=== PATIENT | female | born 1960 | race Caucasian/White ===

== ENCOUNTER 2016-11-24 17:36 | Observation (INO) | payer OTHER ==
[~2016-11-24] VITALS: Ht 160 cm; Wt 100.0 kg
[~2016-11-24 17:36] MED LIST: AMLO2.5T PO; ATOR20TA15 PO; HYDR12.57 PO; LISI40TA PO; LORA-373 PO; METO50TA PO; TOPI1TAB31 PO; TRAZ50TA12 PO; XARE20TA PO; ZOLP10TA3 PO
[2016-11-24 17:37] VITALS: BP 156/89; PULSE 64; RESP 16; TEMP 98.3; O2SAT 98
--- NOTE | 2016-11-24 18:10 | PD ---
HPI Chief Complaint: Chest Pain Time Seen by Provider: 18:08 Travel History International Travel<30 days: No Contact w/Intl Traveler<30days: No Traveled to known affect area: No History of Present Illness HPI 55-year-old female presents for evaluation of chest pain. Symptoms started at 2 AM when she was at work at [email or web address] lifting boxes and other equipment. She describes it as a substernal chest pressure which has been constant. She does report that she went to sleep this morning after work and when she woke up the chest pressure has persisted throughout the day which prompted evaluation. It seems to be worse with exertion. She endorses some nausea as well as some paresthesias in her extremities. She reports that she has had a similar chest pressure about once a month for the past year but typically only lasts for about 30 minutes, it is abnormal have a last for several hours. She has no personal history of coronary artery disease. She does report that she has recently been seeing ground hand Dr. Monahan and it appears per chart review that she had a loop recorder placed in July 2016. A transesophageal echocardiogram was attempted in July 2016 as well but was aborted secondary to desaturation during the event. She has never had any sort of exercise stress test. She also reports a history of left leg DVT currently on Xarelto, the DVT was provoked by a long car ride to [place] 2 years ago, diabetes, high cholesterol, hypertension, remote history of breast cancer and cervical cancer, CVA. Her physician is Dr. Low. No other complaints. PFSH Past Medical History Hx Anticoagulant Therapy: Yes (XERALTO) Cardiovascular Problems: Yes Cerebrovascular Accident: Yes Diabetes: Yes Respiratory: Yes ?: Not Past Surgical History Hysterectomy: Yes Social History Alcohol Use: No Tobacco Use: No Allergies-Medications (Allergen,Severity, Reaction): Coded Allergies: Sulfa (Unverified Allergy, Unknown, 08/06/16) Reported Meds & Prescriptions Reported Meds & Active Scripts Active Reported Zolpidem (Zolpidem Tartrate) 10 Mg Tab 10 Mg PO HS PRN Xarelto (Rivaroxaban) 20 Mg Tab 20 Mg PO DAILY Trazodone (Trazodone HCl) 50 Mg Tab 50 Mg PO HS Topiramate 100 Mg Tab 100 Mg PO BID Metoprolol Tartrate 50 Mg Tab 50 Mg PO BID Lorazepam 0.5 Mg Tab 0.5 Mg PO DAILY PRN Lisinopril 40 Mg Tab 40 Mg PO DAILY Hydrochlorothiazide 12.5 Mg Cap 12.5 Mg PO DAILY Atorvastatin (Atorvastatin Calcium) 20 Mg Tab 20 Mg PO HS Amlodipine (Amlodipine Besylate) 2.5 Mg Tab 2.5 Mg PO DAILY Review of Systems Except as stated in HPI: all other systems reviewed are Neg Physical Exam Narrative GENERAL: Well-developed well-nourished female in no acute distress SKIN: Warm and dry. HEAD: Atraumatic. Normocephalic. EYES: Pupils equal and round. No scleral icterus. No injection or drainage. ENT: No nasal bleeding or discharge. Mucous membranes pink and moist. NECK: Trachea midline. No JVD. CARDIOVASCULAR: Regular rate and rhythm. No murmur appreciated. RESPIRATORY: No accessory muscle use. Clear to auscultation. Breath sounds equal bilaterally. GASTROINTESTINAL: Abdomen soft, non-tender, nondistended. Hepatic and splenic margins not palpable. MUSCULOSKELETAL: No obvious deformities. No pitting edema with negative Homans bilaterally. NEUROLOGICAL: Awake and alert. No obvious cranial nerve deficits. Motor grossly within normal limits. Normal speech. PSYCHIATRIC: Appropriate mood and affect; insight and judgment normal. Data Data Last Documented VS Vital Signs Date Time Temp Pulse Resp B/P Pulse Ox O2 Delivery O2 Flow Rate FiO2 11/24/16 17:37 98.3 64 16 156/89 98 Room Air Orders Electrocardiogram (11/24/16 18:11) Basic Metabolic Panel (Bmp) (11/24/16 18:11) Ckmb (Isoenzyme) Profile (11/24/16 18:11) Complete Blood Count With Diff (11/24/16 18:11) D-Dimer (11/24/16 18:11) Magnesium (Mg) (11/24/16 18:11) Prothrombin Time / Inr (Pt) (11/24/16 18:11) Act Partial Throm Time (Ptt) (11/24/16 18:11) Troponin I (11/24/16 18:11) Chest, Single Ap (11/24/16 18:11) Ecg Monitoring (11/24/16 18:11) Bilateral Bp Monitoring (11/24/16 18:11) Iv Access Insert/Monitor (11/24/16 18:11) Oximetry (11/24/16 18:11) Oxygen Administration (11/24/16 18:11) Sodium Chloride 0.9% Flush (Ns Flush) (11/24/16 18:15) Potassium Chloride (Kcl) (11/24/16 19:30) CKMB (11/24/16 18:37) CKMB% (11/24/16 18:37) Sodium Chlor 0.9% 1000 Ml Inj (Ns 1000 M (11/24/16 19:40) Admit Order (Ed Use Only) (11/24/16 19:48) Labs Laboratory Tests Test 11/24/16 18:37 White Blood Count 7.6 TH/MM3 Red Blood Count 3.92 MIL/MM3 Hemoglobin 12.3 GM/DL Hematocrit 37.0 % Mean Corpuscular Volume 94.5 FL Mean Corpuscular Hemoglobin 31.3 PG Mean Corpuscular Hemoglobin 33.2 % Concent Red Cell Distribution Width 14.1 % Platelet Count 217 TH/MM3 Mean Platelet Volume 9.0 FL Neutrophils (%) (Auto) 61.2 % Lymphocytes (%) (Auto) 24.5 % Monocytes (%) (Auto) 8.4 % Eosinophils (%) (Auto) 5.2 % Basophils (%) (Auto) 0.7 % Neutrophils # (Auto) 4.7 TH/MM3 Lymphocytes # (Auto) 1.9 TH/MM3 Monocytes # (Auto) 0.6 TH/MM3 Eosinophils # (Auto) 0.4 TH/MM3 Basophils # (Auto) 0.1 TH/MM3 CBC Comment DIFF FINAL Differential Comment Prothrombin Time 11.9 SEC Prothromb Time International 1.1 RATIO Ratio Activated Partial 22.6 SEC Thromboplast Time D-Dimer Quantitative (PE/DVT) LESS THAN 0.19 MG/L FEU Sodium Level 140 MEQ/L Potassium Level 3.3 MEQ/L Chloride Level 107 MEQ/L Carbon Dioxide Level 24.9 MEQ/L Anion Gap 8 MEQ/L Blood Urea Nitrogen 31 MG/DL Creatinine 1.05 MG/DL Estimat Glomerular Filtration 54 ML/MIN Rate Random Glucose 141 MG/DL Calcium Level 8.9 MG/DL Magnesium Level 2.3 MG/DL Total Creatine Kinase 182 U/L Creatine Kinase MB 2.9 NG/ML Troponin I LESS THAN 0.02 NG/ML MDM Medical Decision Making Medical Screen Exam Complete: Yes Emergency Medical Condition: Yes Medical Record Reviewed: Yes Interpretation(s) Twelve-lead EKG reveals sinus rhythm Differential Diagnosis Angina, unstable angina, acute coronary syndrome, anxiety, hypertensive urgency , costochondritis, pneumothorax, pericarditis, myocarditis, pulmonary embolism Narrative Course 55-year-old female with several hours of substernal chest pressure. She has a history of DVT in the left leg, and Xarelto, her symptoms and examination are not suggestive of a pulmonary embolism, we will send a d-dimer. Plan is for lab work, EKG, chest x-ray. The patient was placed on cardiac monitoring and pulse oximetry. The patient's lab work has been reviewed. Potassium is 3.3, she was given a dose of oral potassium. BUN to creatinine ratio was elevated so she was given 1 L of IV fluids. CK NB and troponin are negative. D-dimer is negative. At this point in time the plan is to admit the patient to the chest pain center for serial cardiac enzymes and rule out purposes. She is agreeable. Procedures EKG Prior to Arrival: Yes Diagnosis Primary Impression: Chest pain Qualified Code: R07.9 - Chest pain, unspecified type Admitting Information Admitting Physician Requests: Jhon Mendez Nov 24, 2016 18:10
[2016-11-24] MEDS ORDERED: SODIUM CHLORIDE 0.9% FLUSH 10 ML FLUSH IVF PRN (18:15)
--- NOTE | 2016-11-24 18:48 | RADRPT ---
EXAM DATE/TIME: 11/24/2016 18:28 [facility] COMPARISON: No previous studies available for comparison. INDICATIONS : Chest pain. MEDICAL HISTORY : None. SURGICAL HISTORY : None. ENCOUNTER: Initial ACUITY: 1 day PAIN SCORE: 5/10 LOCATION: chest FINDINGS: A single view of the chest demonstrates the lungs to be symmetrically aerated without evidence of mas s, infiltrate or effusion. The cardiomediastinal contours are unremarkable. Osseous structures are intact. CONCLUSION: No acute disease. Aristeo Rodriguez MD on November 24, 2016 at 18:47 Board Certified Radiologist. This report was verified electronically.
[2016-11-24 19:04] LABS: AUTOMATED NEUTROPHIL # 4.7 TH/MM3 (1.8-7.7); BASOPHIL # 0.1 TH/MM3 (0-0.2); BASOPHIL % 0.7 % (0.0-2.0); EOSINOPHIL # 0.4 TH/MM3 (0-0.4); EOSINOPHIL % 5.2 % (0.0-4.0); HEMO FLAGS DIFF FINAL; LYMPH % 24.5 % (9.0-44.0); LYMPHOCYTE # 1.9 TH/MM3 (1.0-4.8); MEAN CELL VOLUME 94.5 FL (80.0-100.0); MEAN CORPUSCULAR HEMOGLOBIN 31.3 PG (27.0-34.0); MEAN CORPUSCULAR HGB CONC 33.2 % (32.0-36.0); MONO % 8.4 % (0.0-8.0); NEUT % 61.2 % (16.0-70.0); PLATELET COUNT 217 TH/MM3 (150-450); RED BLOOD COUNT 3.92 MIL/MM3 (4.00-5.30); RED CELL DISTRIBUTION WIDTH 14.1 % (11.6-17.2); WHITE BLOOD COUNT 7.6 TH/MM3 (4.0-11.0)
[2016-11-24 19:23] LABS: ANION GAP 8 MEQ/L (5-15); BICARBONATE 24.9 MEQ/L (21.0-32.0); BLOOD UREA NITROGEN 31 MG/DL (7-18); CHLORIDE 107 MEQ/L (98-107); GLOMERULAR FILTRATION RATE 54 ML/MIN (>89); MAGNESIUM 2.3 MG/DL (1.5-2.5); POTASSIUM 3.3 MEQ/L (3.5-5.1); SODIUM (NA) 140 MEQ/L (136-145)
[2016-11-24 19:28] LABS: CREATINE KINASE 182 U/L (26-192)
[2016-11-24] MEDS ORDERED: POTASSIUM CHLORIDE 20 MEQ CONTROLLED RELEASE TAB PO ONE (19:30)
[2016-11-24 19:31] LABS: APTT (PATIENT) 22.6 SEC (24.3-30.1); INTERNATIONAL NORMALIZED RATIO 1.1 RATIO; PROTHROMBIN TIME - PATIENT 11.9 SEC (9.8-11.6)
[2016-11-24 19:40] LABS: CKMB 2.9 NG/ML (0.5-3.6)
[2016-11-24] MEDS ORDERED: SODIUM CHLOR 0.9% 1000 ML INJ 1,000 ML IV SCH (19:40)
[2016-11-24 19:51] VITALS: BP 118/74; PULSE 59; RESP 18; O2SAT 99
[2016-11-24] MEDS ORDERED: SODIUM CHLORIDE 0.9% FLUSH 10 ML FLUSH IV FLUSH PRN (20:00)
--- NOTE | 2016-11-24 20:12 | PD ---
Data Data Last Documented VS Vital Signs Date Time Temp Pulse Resp B/P Pulse Ox O2 Delivery O2 Flow Rate FiO2 11/24/16 17:37 98.3 64 16 156/89 98 Room Air Orders Electrocardiogram (11/24/16 18:11) Basic Metabolic Panel (Bmp) (11/24/16 18:11) Ckmb (Isoenzyme) Profile (11/24/16 18:11) Complete Blood Count With Diff (11/24/16 18:11) D-Dimer (11/24/16 18:11) Magnesium (Mg) (11/24/16 18:11) Prothrombin Time / Inr (Pt) (11/24/16 18:11) Act Partial Throm Time (Ptt) (11/24/16 18:11) Troponin I (11/24/16 18:11) Chest, Single Ap (11/24/16 18:11) Ecg Monitoring (11/24/16 18:11) Bilateral Bp Monitoring (11/24/16 18:11) Iv Access Insert/Monitor (11/24/16 18:11) Oximetry (11/24/16 18:11) Oxygen Administration (11/24/16 18:11) Sodium Chloride 0.9% Flush (Ns Flush) (11/24/16 18:15) Potassium Chloride (Kcl) (11/24/16 19:30) CKMB (11/24/16 18:37) CKMB% (11/24/16 18:37) Sodium Chlor 0.9% 1000 Ml Inj (Ns 1000 M (11/24/16 19:40) Admit Order (Ed Use Only) (11/24/16 19:48) Labs Laboratory Tests Test 11/24/16 18:37 White Blood Count 7.6 TH/MM3 Red Blood Count 3.92 MIL/MM3 Hemoglobin 12.3 GM/DL Hematocrit 37.0 % Mean Corpuscular Volume 94.5 FL Mean Corpuscular Hemoglobin 31.3 PG Mean Corpuscular Hemoglobin 33.2 % Concent Red Cell Distribution Width 14.1 % Platelet Count 217 TH/MM3 Mean Platelet Volume 9.0 FL Neutrophils (%) (Auto) 61.2 % Lymphocytes (%) (Auto) 24.5 % Monocytes (%) (Auto) 8.4 % Eosinophils (%) (Auto) 5.2 % Basophils (%) (Auto) 0.7 % Neutrophils # (Auto) 4.7 TH/MM3 Lymphocytes # (Auto) 1.9 TH/MM3 Monocytes # (Auto) 0.6 TH/MM3 Eosinophils # (Auto) 0.4 TH/MM3 Basophils # (Auto) 0.1 TH/MM3 CBC Comment DIFF FINAL Differential Comment Prothrombin Time 11.9 SEC Prothromb Time International 1.1 RATIO Ratio Activated Partial 22.6 SEC Thromboplast Time D-Dimer Quantitative (PE/DVT) LESS THAN 0.19 MG/L FEU Sodium Level 140 MEQ/L Potassium Level 3.3 MEQ/L Chloride Level 107 MEQ/L Carbon Dioxide Level 24.9 MEQ/L Anion Gap 8 MEQ/L Blood Urea Nitrogen 31 MG/DL Creatinine 1.05 MG/DL Estimat Glomerular Filtration 54 ML/MIN Rate Random Glucose 141 MG/DL Calcium Level 8.9 MG/DL Magnesium Level 2.3 MG/DL Total Creatine Kinase 182 U/L Creatine Kinase MB 2.9 NG/ML Troponin I LESS THAN 0.02 NG/ML MDM Supervised Visit with SHAHZAD: Yes Narrative Course The history, exam, and medical decision-making in the associated midlevel provider note were completed with my assistance. I reviewed and agree with the findings presented. I attest that I had a [id number] encounter with the patient on the same day, and personally performed and documented my assessment and findings in the medical record. *My assessment and Findings: This is a 55-year-old female who is followed by Dr. Monahan who presents to the emergency department with chest discomfort that she's had in the past that lasted for a long period of time today concerning her bring her to the emergency department. She has some T-wave inversions in the lateral leads on EKG with left ventricular hypertrophy. Troponin was normal. Patient will be placed in observation in the chest pain center for serial cardiac enzymes and cardiology consultation in the morning. It is not clear when her last stress test was. Patient does also have a history of DVT and is on Xarelto. D-dimer was negative and she is in a moderate risk category by Well's criteria don't think CT imaging is warranted. Diagnosis Primary Impression: Chest pain Qualified Code: R07.9 - Chest pain, unspecified type Carolina Potts MD Nov 24, 2016 20:12
[2016-11-24] MEDS: SODIUM CHLORIDE 0.9% FLUSH 10 ML FLUSH IV FLUSH SCH (20:51)
[2016-11-24 22:10] VITALS: BP 126/68; PULSE 68; RESP 18; TEMP 98.4; O2SAT 98
[2016-11-24 22:11] LABS: CREATINE KINASE 163 U/L (26-192)
[2016-11-24 22:19] VITALS: PULSE 67
[2016-11-24 22:20] VITALS: PULSE 67
[2016-11-25] VITALS: BP 128/74; PULSE 88; RESP 18; TEMP 98; O2SAT 98
[2016-11-25 01:11] LABS: CREATINE KINASE 119 U/L (26-192)
[2016-11-25 01:23] LABS: CKMB 2.1 NG/ML (0.5-3.6)
[2016-11-25 04:14] VITALS: BP 133/63; PULSE 53; RESP 18; TEMP 97.8; O2SAT 95
[2016-11-25 08:03] VITALS: BP 134/60; PULSE 55; RESP 18; TEMP 98.5; O2SAT 94
[2016-11-25] MEDS ORDERED: ACETAMINOPHEN 500 MG CPLT PO PRN (08:30)
[2016-11-25] MEDS ORDERED: NITROGLYCERIN 0.4 MG SL 25 TABS/BTL SL PRN (08:30)
[2016-11-25] MEDS ORDERED: ONDANSETRON HCL 4 MG/2 ML VIAL IV PRN (08:30)
[2016-11-25] MEDS: SODIUM CHLORIDE 0.9% FLUSH 10 ML FLUSH IV FLUSH SCH (09:00)
[2016-11-25] MEDS ORDERED: METOPROLOL TARTRATE 50 MG TAB PO SCH (09:00)
[2016-11-25] MEDS ORDERED: amLODIPine BESYLATE 5 MG TAB PO SCH (09:00)
[2016-11-25] MEDS ORDERED: HYDROCHLOROTHIAZIDE 12.5 MG CAP PO SCH (09:00)
--- NOTE | 2016-11-25 09:20 | HHI.DCPOC ---
Discharge Care Plan Diagnosis: (1) Atypical chest pain (2) Anxiety (3) Hypertension (4) Type 2 diabetes mellitus (5) Situational stress (6) Obesity Goals to Promote Your Health * To prevent worsening of your condition and complications * To maintain your health at the optimal level Directions to Meet Your Goals Take your medications as prescribed Follow your dietary instruction Follow activity as directed Keep your appointments as scheduled Take your immunizations and boosters as scheduled If your symptoms worsen call your PCP, if no PCP go to Urgent Care Center or Emergency Room Smoking is Dangerous to Your Health. Avoid second hand smoke Call the 24-hour hour crisis hotline for domestic abuse at Carli Devi Nov 25, 2016 09:20
[2016-11-25] MEDS ORDERED: TOPIRAMATE 100 MG TAB PO SCH (10:00)
[2016-11-25] MEDS ORDERED: RIVAROXABAN 20 MG TAB PO SCH (10:00)
[2016-11-25] MEDS ORDERED: LISINOPRIL 20 MG TAB PO SCH (10:00)
[2016-11-25 10:13] VITALS: PULSE 52
--- NOTE | 2016-11-25 10:39 | HHI.HP ---
HPI Primary Care Physician Cristobal Low DO Chief Complaint Chest pain History of Present Illness 55-year-old patient with known hypertension, diabetes, and hyperlipidemia presents to the emergency room for further evaluation. Onset Tuesday 2 AM, while at work during a break she developed substernal severe nonexertional chest pain. No radiation. Described as a stabbing pain. Duration constant, waxed and waned and varied in severity. Associated symptoms included nausea and "my whole body was tingling." Taking a deep breath made pain worse. Position or movement did not make pain better or worse. Precipitating factors she believes is stress however does not feel she is anxious. No known relieving factors. She continued to work until at 7 AM, went home completing shift and slept until 3 PM. Upon awakening chest discomfort remained described as "a hand sitting pressing on my chest ." Spoke with daughter regarding events and decided to come to emergency room for further evaluation. Endorses intermittent chest discomfort in the past however not as severe. Review of Systems General: No fatigue,weakness, fever, chills, recent illness, or change in appetite HEENT: No BRADLEY, no vision changes, no nasal congestion or drainage, no dysphasia CV: As stated above . No current chest pain or pressure. No palpitations, intermittent leg pain, or dizziness. Recorder placed July 2016. No recorded events that she is aware of. Loop recorder was placed due to dizziness and near syncopal episodes. RESP: No SOB, cough, wheeze, or recent URI. GI: No nausea, vomiting, bowel changes, diarrhea, constipation, pain, distention , melena, blood in the stool. No unintentional weight gain or weight loss : No dysuria, urgency, frequency, hematuria, or history of kidney stones EXT: No lower leg edema, no paraesthesias MS: No discomfort or change in ROM NEURO: No change in memory, difficulty with balance, LOC, motor/sensory deficits PSYCH: Depression stable on current medications. Ativan when necessary, states she uses regularly before going to sleep. Endorses situational stress recently with job and recent move. SKIN: No rashes, no concerning lesions Past Family Social History Allergies: Coded Allergies: Sulfa (Unverified Allergy, Unknown, 08/06/16) Past Medical History Hypertension, hyperlipidemia, breast cancer (never required chemotherapy or radiation), cervical cancer (never require chemotherapy or radiation), depression, left leg DVT (2 years ago), CVA (5 years ago), and diabetes. Does not take medication for diabetes was diagnosed 2 years ago currently managed with diet. Past Surgical History Cholecystectomy Reported Medications Reported Meds & Active Scripts Active Reported Zolpidem (Zolpidem Tartrate) 10 Mg Tab 10 Mg PO HS PRN Xarelto (Rivaroxaban) 20 Mg Tab 20 Mg PO DAILY Trazodone (Trazodone HCl) 50 Mg Tab 50 Mg PO HS Topiramate 100 Mg Tab 100 Mg PO BID Metoprolol Tartrate 50 Mg Tab 50 Mg PO BID Lorazepam 0.5 Mg Tab 0.5 Mg PO DAILY PRN Lisinopril 40 Mg Tab 40 Mg PO DAILY Hydrochlorothiazide 12.5 Mg Cap 12.5 Mg PO DAILY Atorvastatin (Atorvastatin Calcium) 20 Mg Tab 20 Mg PO HS Amlodipine (Amlodipine Besylate) 2.5 Mg Tab 2.5 Mg PO DAILY Active Ordered Medications Current Medications Medications (Trade) Dose Ordered Sig/Reina Route Start Time Stop Time Status Last Admin (Tylenol) 500 mg Q4H PRN PO 11/25/16 08:30 (Zofran Inj) 4 mg Q6H PRN IV 11/25/16 08:30 (Nitrostat Sl) 0.4 mg Q5M PRN SL 11/25/16 08:30 (Norvasc) 2.5 mg DAILY PO 11/25/16 09:00 11/25/16 09:30 (Lipitor) 20 mg HS PO 11/25/16 21:00 (Microzide) 12.5 mg DAILY PO 11/25/16 09:00 11/25/16 09:30 (Lopressor) 50 mg BID PO 11/25/16 09:00 11/25/16 09:30 (Xarelto) 20 mg DAILY PO 11/25/16 10:00 (Topamax) 100 mg BID PO 11/25/16 10:00 (Desyrel) 50 mg HS PO 11/25/16 21:00 (Prinivil) 40 mg DAILY PO 11/25/16 10:00 Social History 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 Denies any alcohol or illegal drug use. Past cardiac testing Patient's senior automation engineer is Dr. Monahan. Loop recorder placed July 2016. Per her report no recent stress testing. Never had cardiac catheterization. Physical Exam Vital Signs Vital Signs Date Time Temp Pulse Resp B/P Pulse Ox O2 Delivery O2 Flow Rate FiO2 11/25/16 10:13 52 11/25/16 08:03 98.5 55 18 134/60 94 11/25/16 04:14 97.8 53 18 133/63 95 11/25/16 00:00 98.0 88 18 128/74 98 11/24/16 22:20 67 11/24/16 22:19 67 11/24/16 22:10 98.4 68 18 126/68 98 11/24/16 19:51 99 Room Air 11/24/16 19:51 59 18 118/74 99 Room Air 11/24/16 19:51 118/74 11/24/16 17:37 98.3 64 16 156/89 98 Room Air Physical Exam GENERAL: Alert WN, WD, NAD, pleasant, , obese female HEAD: NC, AT EYES: Sclera clear, conjunctiva without injection, pupils equal and round ENT: Mucous membranes pink and moist NECK: Supple, no masses, trachea midline CV: RRR, 2/6 systolic murmur, no rub, gallop, JVD, S1-S2 no S3-S4. RESP: Clear lungs throughout bilateral, no crackles, wheeze, rhonchi, symmetrical chest rise, nonlabored, able to speak in full sentences ABD: Soft, NT, ND, obese, no masses, positive bowel tones BACK: No CVAT, no scoliosis EXT: Pulses +24, no dependent edema MS: Normal tone 4 extremities, nontender, no obvious deformities, full range of motion NEURO: CN II through CN XII grossly intact, motor strength 5/5, gait WNL PSYCH: A+O 3, pleasant affect, appropriate speech, appropriate mood and affect , insight and judgment SKIN: Normal turgor, normal texture, no lesions, no rashes, brisk cap refill, even hair distribution Laboratory Laboratory Tests Test 11/24/16 11/24/16 11/25/16 18:37 21:20 00:00 White Blood Count 7.6 Red Blood Count 3.92 Hemoglobin 12.3 Hematocrit 37.0 Mean Corpuscular Volume 94.5 Mean Corpuscular Hemoglobin 31.3 Mean Corpuscular Hemoglobin 33.2 Concent Red Cell Distribution Width 14.1 Platelet Count 217 Mean Platelet Volume 9.0 Neutrophils (%) (Auto) 61.2 Lymphocytes (%) (Auto) 24.5 Monocytes (%) (Auto) 8.4 Eosinophils (%) (Auto) 5.2 Basophils (%) (Auto) 0.7 Neutrophils # (Auto) 4.7 Lymphocytes # (Auto) 1.9 Monocytes # (Auto) 0.6 Eosinophils # (Auto) 0.4 Basophils # (Auto) 0.1 CBC Comment DIFF FINAL Differential Comment Prothrombin Time 11.9 Prothromb Time International 1.1 Ratio Activated Partial 22.6 Thromboplast Time D-Dimer Quantitative (PE/DVT) LESS THAN 0.19 Sodium Level 140 Potassium Level 3.3 Chloride Level 107 Carbon Dioxide Level 24.9 Anion Gap 8 Blood Urea Nitrogen 31 Creatinine 1.05 Estimat Glomerular Filtration 54 Rate Random Glucose 141 Calcium Level 8.9 Magnesium Level 2.3 Total Creatine Kinase 182 163 119 Creatine Kinase MB 2.9 2.0 2.1 Troponin I LESS THAN 0.02 LESS THAN 0.02 0.02 Result Diagram: 11/24/16183611/24/161836 Imaging Last Impressions Chest X-Ray 11/24/161810 Signed Impressions: Service Date/Time: Thursday, November 24, 2016 18:28 - CONCLUSION: No acute disease. Aristeo Rodriguez MD Course EKGs 3 EKG show normal sinus rhythm with nonspecific ST changes Assessment and Plan Assessment and Plan #1 Chest painadmitted to chest pain center. Ruled out with 3 EKGs, cardiac enzymes, and monitored overnight. The patient seen and evaluated by Dr. Annamaria Gauthier. Spoke with patient's senior automation engineer, Dr. Monahan, regarding plan of care. Dr. Monahan states patient recently had normal stress test July 2016, no further stress testing required at this time. Skylar requests for patient to follow-up in office and to keep appointment in November. Discussed with patient in length and she is agreeable to plan of care. #2 Hypertensioncontinue lisinopril, hydrochlorothiazide, amlodipine #3 Anxietycontinue Ativan when necessary. Discussed in length importance of well-balanced diet, daily activity, and he open communication with her PCP regarding her anxiety and depression. #4 Diabetesencouraged following diabetic diet, daily activity, and keeping follow-up appointments with PCP #5 History of DVT- continue Xarelto #6 Hypokalemia-replacement provided in ED Carli Devi Nov 25, 2016 10:39
[2016-11-25] MEDS ORDERED: traZODone HCL 50 MG TAB PO SCH (21:00)
[2016-11-25] MEDS ORDERED: ATORVASTATIN 20 MG TAB PO SCH (21:00)
--- NOTE | 2016-11-25 21:37 | EKG ---
Date Performed: 11/25/2016 Time Performed: 01:44:10 PTAGE: 55 years EKG: SINUS BRADYCARDIA NONSPECIFIC T-WAVE ABNORMALITY ABNORMAL ECG Since PREVIOUS TRACING , no significant change noted PREVIOUS TRACIN11/24/2016 22.14 DOCTOR: Annamaria Gauthier Interpretating Date/Time 11/25/2016 21:35:53
--- NOTE | 2016-11-25 21:38 | EKG ---
Date Performed: 11/24/2016 Time Performed: 22:14:43 PTAGE: 55 years EKG: SINUS BRADYCARDIA LEFT VENTRICULAR HYPERTROPHY AND ST-T CHANGE ABNORMAL ECG Since PREVIOUS TRACING , no significant change noted PREVIOUS TRACIN11/24/2016 18.08 DOCTOR: Annamaria Gauthier Interpretating Date/Time 11/25/2016 21:37:09
--- NOTE | 2016-11-25 21:39 | EKG ---
Date Performed: 11/24/2016 Time Performed: 18:08:00 PTAGE: 55 years EKG: Sinus rhythm LEFT VENTRICULAR HYPERTROPHY AND ST-T CHANGE ABNORMAL ECG Since previous tracing, no significant norbert nge noted NO PREVIOUS TRACING DOCTOR: Annamaria Gauthier Interpretating Date/Time 11/25/2016 21:38:47
== END 2016-11-25 16:03 | disposition home or self-care (01) ==
LOC: NEPA 17:36 → NEDA 19:49 → NEPGCP 21:17
PROVIDERS: ADMIT Internal Medicine Cardiovascular Disease; ATTEND Internal Medicine Cardiovascular Disease
DX: R07.9 Chest pain, unspecified (principal); R11.0 Nausea; R20.9 Unspecified disturbances of skin sensation; Z86.718 Personal history of other venous thrombosis and embolism; Z85.41 Personal history of malignant neoplasm of cervix uteri; Z85.3 Personal history of malignant neoplasm of breast; I51.7 Cardiomegaly; E78.00 Pure hypercholesterolemia, unspecified; E11.9 Type 2 diabetes mellitus without complications; Z79.01 Long term (current) use of anticoagulants; Z79.899 Other long term (current) drug therapy; E78.5 Hyperlipidemia, unspecified; E87.6 Hypokalemia; I10 Essential (primary) hypertension; R94.31 Abnormal electrocardiogram [ECG] [EKG]; R00.1 Bradycardia, unspecified; F41.9 Anxiety disorder, unspecified
CPT/HCPCS: 71010; 80048; 82550; 82552; 83735; 84484; 85025; 85379; 85610; 85730; 93005; 99285; G0378; J7030

== ENCOUNTER 2017-04-28 16:33 | Observation (INO) | payer OTHER ==
[~2017-04-28] VITALS: Ht 160 cm; Wt 93.0 kg
[2017-04-28] VITALS (8 sets, daily range): BP systolic 138–202; BP diastolic 63–94; PULSE 54–71; RESP 12–20; TEMP 97.8–97.9; O2SAT 98–99
--- NOTE | 2017-04-28 16:38 | PD ---
Physical Exam Time Seen by Provider: 16:36 Narrative 56yo F c/o chest pain last night and chest pressure today. Has had pain like this bed. +lightheadedness and SOB. Reports hx of leak in aortic valve. HX of DVT and currently taking Xarelto. Patient seen in triage. VS reviewed. Awaiting bed placement. Data Data Last Documented VS Vital Signs Date Time Temp Pulse Resp B/P (MAP) Pulse Ox O2 Delivery O2 Flow Rate FiO2 04/28/17 16:35 97.9 66 20 189/94 (125) 99 Room Air Orders Orders Electrocardiogram (04/28/17 16:38) Basic Metabolic Panel (Bmp) (04/28/17 16:38) Ckmb (Isoenzyme) Profile (04/28/17 16:38) Complete Blood Count With Diff (04/28/17 16:38) Magnesium (Mg) (04/28/17 16:38) Prothrombin Time / Inr (Pt) (04/28/17 16:38) Act Partial Throm Time (Ptt) (04/28/17 16:38) Troponin I (04/28/17 16:38) Chest, Single Ap (04/28/17 16:38) Ecg Monitoring (04/28/17 16:38) Iv Access Insert/Monitor (04/28/17 16:38) Oximetry (04/28/17 16:38) Oxygen Administration (04/28/17 16:38) Sodium Chloride 0.9% Flush (Ns Flush) (04/28/17 16:45) [facility] Supervised Visit with SHAHZAD: Morenita Rosado Apr 28, 2017 16:38
[2017-04-28] MEDS ORDERED: SODIUM CHLORIDE 0.9% FLUSH 10 ML FLUSH IVF PRN (16:45)
[2017-04-28] MEDS ORDERED: TOPI1TAB36 PO (17:13)
--- NOTE | 2017-04-28 17:14 | PD ---
HPI Chief Complaint: Chest Pain Time Seen by Provider: 16:52 Travel History International Travel<30 days: No Contact w/Intl Traveler<30days: No Traveled to known affect area: No History of Present Illness HPI Patient is a 56-year-old female with history of diabetes, hypertension, DVT, "leaky aortic valve," presents to the ER with complaints of chest pain. Patient reports that she was working last night when she began to have this chest pain. Patient reports that chest pain is substernal in nature, reports that initially felt like a "sharp and stabbing sensation" that radiated up her neck, reports that now pain feels "pressure" to her chest. Patient reports that she has been having shortness of breath with diaphoresis with her symptoms. Reports the chest pain has been constant, nothing makes her pain better or worse. patient reports that she is on Xarelto for dvt, she follows with Dr. Monahan with cardiology. Reports that she last had an echo and stress test recently, reports that she thinks that everything was normal. PFSH Past Medical History Hx Anticoagulant Therapy: Yes (XERALTO) Cardiovascular Problems: Yes High Cholesterol: Yes Cerebrovascular Accident: Yes Diabetes: Yes Patient Takes Glucophage: No Hypertension: Yes Respiratory: Yes Immunizations Current: Yes Past Surgical History Cholecystectomy: Yes Gynecologic Surgery: Yes Hysterectomy: Yes (1996) Social History Alcohol Use: No Tobacco Use: No Substance Use: No Allergies-Medications (Allergen,Severity, Reaction): Coded Allergies: Sulfa (Sulfonamide Antibiotics) (Unverified Allergy, Unknown, 04/28/17) Reported Meds & Prescriptions Reported Meds & Active Scripts Active Reported Topiramate 50 Mg Tab 100 Mg PO BID Zolpidem (Zolpidem Tartrate) 10 Mg Tab 10 Mg PO HS PRN Xarelto (Rivaroxaban) 20 Mg Tab 20 Mg PO DAILY Trazodone (Trazodone HCl) 50 Mg Tab 50 Mg PO HS Metoprolol Tartrate 50 Mg Tab 50 Mg PO BID Lorazepam 0.5 Mg Tab 0.5 Mg PO DAILY PRN Lisinopril 40 Mg Tab 40 Mg PO DAILY Hydrochlorothiazide 12.5 Mg Cap 12.5 Mg PO DAILY Atorvastatin (Atorvastatin Calcium) 20 Mg Tab 20 Mg PO HS Amlodipine (Amlodipine Besylate) 2.5 Mg Tab 2.5 Mg PO DAILY Review of Systems General / Constitutional: No: Fever Eyes: No: Visual changes HENT: No: Headaches Cardiovascular: Positive: Chest Pain or Discomfort, Diaphoresis Respiratory: Positive: Shortness of Breath Gastrointestinal: No: Abdominal Pain Genitourinary: No: Dysuria Musculoskeletal: No: Pain Skin: No Rash Neurologic: No: Weakness Psychiatric: No: Depression Endocrine: No: Polydipsia Hematologic/Lymphatic: No: Easy Bruising Physical Exam Narrative GENERAL: Mild distress SKIN: Focused skin assessment warm/dry. HEAD: Atraumatic. Normocephalic. EYES: Pupils equal and round. No scleral icterus. No injection or drainage. ENT: No nasal bleeding or discharge. Mucous membranes pink and moist. NECK: Trachea midline. No JVD. CARDIOVASCULAR: Regular rate and rhythm. No murmur appreciated. RESPIRATORY: No accessory muscle use. Clear to auscultation. Breath sounds equal bilaterally. GASTROINTESTINAL: Abdomen soft, non-tender, nondistended. Hepatic and splenic margins not palpable. MUSCULOSKELETAL: No obvious deformities. No clubbing. No cyanosis. No edema. NEUROLOGICAL: Awake and alert. No obvious cranial nerve deficits. Motor grossly within normal limits. Normal speech. PSYCHIATRIC: Appropriate mood and affect; insight and judgment normal. Data Data Last Documented VS Vital Signs Date Time Temp Pulse Resp B/P (MAP) Pulse Ox O2 Delivery O2 Flow Rate FiO2 04/28/17 18:02 14 04/28/17 18:00 68 150/78 (102) 98 Room Air 04/28/17 16:35 97.9 Orders Orders Electrocardiogram (04/28/17 16:38) Basic Metabolic Panel (Bmp) (04/28/17 16:38) Ckmb (Isoenzyme) Profile (04/28/17 16:38) Complete Blood Count With Diff (04/28/17 16:38) Magnesium (Mg) (04/28/17 16:38) Prothrombin Time / Inr (Pt) (04/28/17 16:38) Act Partial Throm Time (Ptt) (04/28/17 16:38) Troponin I (04/28/17 16:38) Ecg Monitoring (04/28/17 16:38) Iv Access Insert/Monitor (04/28/17 16:38) Oximetry (04/28/17 16:38) Oxygen Administration (04/28/17 16:38) Sodium Chloride 0.9% Flush (Ns Flush) (04/28/17 16:45) Chest, Single Ap (04/28/17 16:38) Aspirin Chew (Aspirin Chew) (04/28/17 17:15) Nitroglycerin Sl (Nitrostat Sl) (04/28/17 17:15) CKMB (04/28/17 17:05) CKMB% (04/28/17 17:05) Potassium Chloride (Kcl) (04/28/17 18:30) Admit Order (Ed Use Only) (04/28/17 18:25) Activity Bed Rest With Brp (04/28/17 18:26) Vital Signs (Adult) Q4H (04/28/17 18:26) Labs Laboratory Tests Test 04/28/17 17:05 White Blood Count 6.8 TH/MM3 Red Blood Count 3.96 MIL/MM3 Hemoglobin 12.3 GM/DL Hematocrit 37.2 % Mean Corpuscular Volume 93.8 FL Mean Corpuscular Hemoglobin 31.1 PG Mean Corpuscular Hemoglobin Concent 33.1 % Red Cell Distribution Width 15.0 % Platelet Count 239 TH/MM3 Mean Platelet Volume 8.1 FL Neutrophils (%) (Auto) 57.3 % Lymphocytes (%) (Auto) 27.9 % Monocytes (%) (Auto) 9.6 % Eosinophils (%) (Auto) 4.6 % Basophils (%) (Auto) 0.6 % Neutrophils # (Auto) 3.9 TH/MM3 Lymphocytes # (Auto) 1.9 TH/MM3 Monocytes # (Auto) 0.7 TH/MM3 Eosinophils # (Auto) 0.3 TH/MM3 Basophils # (Auto) 0.0 TH/MM3 CBC Comment DIFF FINAL Differential Comment Prothrombin Time 10.2 SEC Prothromb Time International Ratio 0.9 RATIO Activated Partial Thromboplast Time 25.4 SEC Blood Urea Nitrogen 30 MG/DL Creatinine 1.06 MG/DL Random Glucose 122 MG/DL Calcium Level 9.3 MG/DL Magnesium Level 2.4 MG/DL Sodium Level 139 MEQ/L Potassium Level 3.4 MEQ/L Chloride Level 104 MEQ/L Carbon Dioxide Level 26.4 MEQ/L Anion Gap 9 MEQ/L Estimat Glomerular Filtration Rate 53 ML/MIN Total Creatine Kinase 119 U/L Creatine Kinase MB 2.3 NG/ML Troponin I 0.02 NG/ML MDM Medical Decision Making Medical Screen Exam Complete: Yes Emergency Medical Condition: Yes Interpretation(s) EKG at 1644: Sinus bradycardia at 58bpm, nonspecific st seg changes (EKG similar to 11/25/16) Vital Signs Date Time Temp Pulse Resp B/P (MAP) Pulse Ox O2 Delivery O2 Flow Rate FiO2 04/28/17 16:58 62 99 Room Air 04/28/17 16:56 Room Air 04/28/17 16:56 63 12 202/74 (116) 99 Room Air 04/28/17 16:35 97.9 66 20 189/94 (125) 99 Room Air Differential Diagnosis Differential includes ACS, arrhythmia, anxiety reaction, costochondritis, electrolyte abnormality Narrative Course Patient is a 56-year-old female who presents to emergency with complaints of chest pain. Patient reports that chest pain has been ongoing since last night, reports that chest pain was initially sharp and stabbing in nature now feels like a pressure to her chest. Patient was placed on a direct casting operator upon arrival to the emergency room. EKG was obtained, EKG with nonspecific ST-T wave changes, unchanged from previous EKGs. Aspirin ordered, sublingual nitroglycerin ordered, x-ray of the chest, lab work including cardiac enzymes ordered as well. Vital Signs Date Time Temp Pulse Resp B/P (MAP) Pulse Ox O2 Delivery O2 Flow Rate FiO2 04/28/17 18:02 14 04/28/17 18:00 68 16 150/78 (102) 98 Room Air 04/28/17 17:59 71 16 138/73 (94) 99 Room Air 04/28/17 17:08 59 19 181/77 (111) 98 Room Air 04/28/17 16:58 62 99 Room Air 04/28/17 16:56 Room Air 04/28/17 16:56 63 12 202/74 (116) 99 Room Air 04/28/17 16:35 97.9 66 20 189/94 (125) 99 Room Air Laboratory Tests Test 04/28/17 17:05 White Blood Count 6.8 TH/MM3 (4.0-11.0) Red Blood Count 3.96 MIL/MM3 (4.00-5.30) Hemoglobin 12.3 GM/DL (11.6-15.3) Hematocrit 37.2 % (35.0-46.0) Mean Corpuscular Volume 93.8 FL (80.0-100.0) Mean Corpuscular Hemoglobin 31.1 PG (27.0-34.0) Mean Corpuscular Hemoglobin Concent 33.1 % (32.0-36.0) Red Cell Distribution Width 15.0 % (11.6-17.2) Platelet Count 239 TH/MM3 (150-450) Mean Platelet Volume 8.1 FL (7.0-11.0) Neutrophils (%) (Auto) 57.3 % (16.0-70.0) Lymphocytes (%) (Auto) 27.9 % (9.0-44.0) Monocytes (%) (Auto) 9.6 % (0.0-8.0) Eosinophils (%) (Auto) 4.6 % (0.0-4.0) Basophils (%) (Auto) 0.6 % (0.0-2.0) Neutrophils # (Auto) 3.9 TH/MM3 (1.8-7.7) Lymphocytes # (Auto) 1.9 TH/MM3 (1.0-4.8) Monocytes # (Auto) 0.7 TH/MM3 (0-0.9) Eosinophils # (Auto) 0.3 TH/MM3 (0-0.4) Basophils # (Auto) 0.0 TH/MM3 (0-0.2) CBC Comment DIFF FINAL Differential Comment Prothrombin Time 10.2 SEC (9.8-11.6) Prothromb Time International Ratio 0.9 RATIO Activated Partial Thromboplast Time 25.4 SEC (24.3-30.1) Blood Urea Nitrogen 30 MG/DL (7-18) Creatinine 1.06 MG/DL (0.50-1.00) Random Glucose 122 MG/DL (74-106) Calcium Level 9.3 MG/DL (8.5-10.1) Magnesium Level 2.4 MG/DL (1.5-2.5) Sodium Level 139 MEQ/L (136-145) Potassium Level 3.4 MEQ/L (3.5-5.1) Chloride Level 104 MEQ/L (98-107) Carbon Dioxide Level 26.4 MEQ/L (21.0-32.0) Anion Gap 9 MEQ/L (5-15) Estimat Glomerular Filtration Rate 53 ML/MIN (>89) Total Creatine Kinase 119 U/L (26-192) Creatine Kinase MB 2.3 NG/ML (0.5-3.6) Troponin I 0.02 NG/ML (0.02-0.05) Last Impressions Chest X-Ray 04/28/17 1638 Signed Impressions: Service Date/Time: , April 28, 2017 17:05 - CONCLUSION: No acute disease. Nicola Martinez MD Patient re-evaluated, she is chest pain free after 1 SL nitro. Plan to obs in chest pain unit. Patient agreeable to admission Diagnosis Primary Impression: Chest pain Qualified Codes: R07.9 - Chest pain, unspecified Admitting Information Admitting Physician Requests: Observation Lorena Tavera DO Apr 28, 2017 17:14
[2017-04-28] MEDS ORDERED: ASPIRIN 81 MG CHEW TAB PO ONE (17:15)
[2017-04-28 17:40] LABS: AUTOMATED NEUTROPHIL # 3.9 TH/MM3 (1.8-7.7); BASOPHIL % 0.6 % (0.0-2.0); EOSINOPHIL # 0.3 TH/MM3 (0-0.4); EOSINOPHIL % 4.6 % (0.0-4.0); HEMATOCRIT 37.2 % (35.0-46.0); HEMO FLAGS DIFF FINAL; LYMPH % 27.9 % (9.0-44.0); LYMPHOCYTE # 1.9 TH/MM3 (1.0-4.8); MEAN CELL VOLUME 93.8 FL (80.0-100.0); MEAN CORPUSCULAR HEMOGLOBIN 31.1 PG (27.0-34.0); MEAN CORPUSCULAR HGB CONC 33.1 % (32.0-36.0); MONO % 9.6 % (0.0-8.0); NEUT % 57.3 % (16.0-70.0); PLATELET COUNT 239 TH/MM3 (150-450); RED BLOOD COUNT 3.96 MIL/MM3 (4.00-5.30); WHITE BLOOD COUNT 6.8 TH/MM3 (4.0-11.0)
--- NOTE | 2017-04-28 17:43 | RADRPT ---
EXAM DATE/TIME: 04/28/2017 17:05 [facility] COMPARISON: CHEST SINGLE AP, November 24, 2016, 18:28. INDICATIONS : Chest pain and short of breath since yesterday. MEDICAL HISTORY : None. SURGICAL HISTORY : None. ENCOUNTER: Initial ACUITY: 1 day PAIN SCORE: 7/10 LOCATION: Bilateral chest FINDINGS: A single view of the chest demonstrates the lungs to be symmetrically aerated without evidence of mas s, infiltrate or effusion. The cardiomediastinal contours are unremarkable. Osseous structures are intact. There are multiple overlying electrocardiogram leads. CONCLUSION: No acute disease. Nicola Martinez MD on April 28, 2017 at 17:41 Board Certified Radiologist. This report was verified electronically.
[2017-04-28 17:52] LABS: APTT (PATIENT) 25.4 SEC (24.3-30.1); INTERNATIONAL NORMALIZED RATIO 0.9 RATIO; PROTHROMBIN TIME - PATIENT 10.2 SEC (9.8-11.6)
[2017-04-28] MEDS: NITROGLYCERIN 0.4 MG SL 25 TABS/BTL SL SCH ×3 (17:52→18:02)
[2017-04-28 17:58] LABS: ANION GAP 9 MEQ/L (5-15); BICARBONATE 26.4 MEQ/L (21.0-32.0); BLOOD UREA NITROGEN 30 MG/DL (7-18); CHLORIDE 104 MEQ/L (98-107); GLOMERULAR FILTRATION RATE 53 ML/MIN (>89); MAGNESIUM 2.4 MG/DL (1.5-2.5); POTASSIUM 3.4 MEQ/L (3.5-5.1); SODIUM (NA) 139 MEQ/L (136-145)
[2017-04-28 18:01] LABS: CREATINE KINASE 119 U/L (26-192)
[2017-04-28 18:20] LABS: CKMB 2.3 NG/ML (0.5-3.6)
[2017-04-28] MEDS ORDERED: POTASSIUM CHLORIDE 10 MEQ CONTROLLED RELEASE TAB PO ONE (18:30)
[2017-04-28 21:18] LABS: CREATINE KINASE 110 U/L (26-192)
[2017-04-28 21:31] LABS: CKMB 2.2 NG/ML (0.5-3.6)
[2017-04-29] VITALS (7 sets, daily range): BP systolic 119–140; BP diastolic 58–80; PULSE 48–63; RESP 16–18; TEMP 97.7–98.2; O2SAT 97–99
--- NOTE | 2017-04-29 08:44 | HHI.HP ---
HPI Primary Care Physician Cristobal Low DO Chief Complaint Chest pain History of Present Illness 56-year-old female with history of diabetes, hypertension, and DVT presents to emergency room for further evaluation of chest pain. Onset last evening while at work midnight. Location substernal. Characterized as a stabbing from the front to the back. No associated symptoms of shortness of breath, nausea, vomiting, or diaphoresis. Endorses hurt to take a deep breath. Approximately 2 hours later she developed left neck pain and left arm tingling. At 4 AM stabbing pain changed to chest pressure accompanied with dizziness. Completed her shift relieving at 7 AM. Unable to sleep due to chest pressure. No precipitating or relieving factors. Came to ER in afternoon for further evaluation of chest pressure. Endorses similar pain in the past. Patients resaw machine operator is Dr. Monahan. Review of Systems General: No fatigue,weakness, fever, chills, or recent illness. Has been in her general state of health. HEENT: No BRADLEY, no nasal congestion or drainage CV: As stated above. Currently chest pain free. RESP: Intermittent chest congestion every week or so. Chest congestion usually lingers for 3-4 days. No SOB, no dyspnea, cough, wheeze, sputum production, or history of asthma GI: No nausea, vomiting, bowel changes, diarrhea, melena, or blood in the stool. No change in appetite, no unintentional weight gain or weight loss : No dysuria, urgency or frequency EXT: Intermittent lower leg edema, noting left leg slightly more edematous due to current DVT, states she will be on lifetime anticoagulants. MS: No discomfort or change in ROM NEURO: No difficulty with balance, LOC, motor/sensory deficits PSYCH: No anxiety, depression, or situation stress SKIN: No rashes, no concerning lesions Past Family Social History Allergies: Coded Allergies: Sulfa (Sulfonamide Antibiotics) (Unverified Allergy, Unknown, 04/28/17) Past Medical History Diabetes (diet controlled at this time), HTN, Left leg DVT, hyperlipidemia, breast cancer (never required chemotherapy or radiation), cervical cancer ( never required chemotherapy or radiation), depression, CVA (5 years ago) Past Surgical History Hysterectomy, cholecystectomy, lumpectomy, cervical mass removed Reported Medications Active Reported Topiramate 50 Mg Tab 100 Mg PO BID Zolpidem (Zolpidem Tartrate) 10 Mg Tab 10 Mg PO HS PRN Xarelto (Rivaroxaban) 20 Mg Tab 20 Mg PO DAILY Trazodone (Trazodone HCl) 50 Mg Tab 50 Mg PO HS Metoprolol Tartrate 50 Mg Tab 50 Mg PO BID Lorazepam 0.5 Mg Tab 0.5 Mg PO DAILY PRN Lisinopril 40 Mg Tab 40 Mg PO DAILY Hydrochlorothiazide 12.5 Mg Cap 12.5 Mg PO DAILY Atorvastatin (Atorvastatin Calcium) 20 Mg Tab 20 Mg PO HS Amlodipine (Amlodipine Besylate) 2.5 Mg Tab 2.5 Mg PO DAILY Active Ordered Medications Current Medications Medications (Trade) Dose Ordered Sig/Reina Route Start Time Stop Time Status Last Admin (NS Flush) 2 ml UNSCH PRN IVF 04/28/17 16:45 04/29/17 08:24 (Aspirin) 325 mg DAILY PO 04/29/17 09:00 04/29/17 08:23 Social History Known diabetes, hyperlipidemia and hypertension. No known CAD. Lifelong nonsmoker. Denies any alcohol or illegal drug use. 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 Past Cardiac Testing July [id number] (completed at [facility]) Patient follows with Dr. Monahan-last appointment with him last month. No changes in medications or recent stressing at that time. Physical Exam Vital Signs Vital Signs Date Time Temp Pulse Resp B/P (MAP) Pulse Ox O2 Delivery O2 Flow Rate FiO2 04/29/17 07:54 98.2 56 16 127/65 (85) 98 04/29/17 07:30 63 04/29/17 04:39 97.9 55 17 140/80 (100) 99 04/29/17 04:03 56 04/29/17 00:07 51 04/28/17 23:36 97.8 54 18 142/63 (89) 98 04/28/17 20:19 61 04/28/17 19:58 97.8 59 16 143/70 (94) 99 04/28/17 19:26 04/28/17 18:02 14 04/28/17 18:00 68 16 150/78 (102) 98 Room Air 04/28/17 17:59 71 16 138/73 (94) 99 Room Air 04/28/17 17:08 59 19 181/77 (111) 98 Room Air 04/28/17 16:58 62 99 Room Air 04/28/17 16:56 Room Air 04/28/17 16:56 63 12 202/74 (116) 99 Room Air 04/28/17 16:35 97.9 66 20 189/94 (125) 99 Room Air Physical Exam GENERAL: Alert WN, WD, NAD, pleasant, obese, female HEAD: NC, AT EYES: Sclera clear, conjunctiva without injection CV: RRR, 2/6 systolic murmur, no rub, no gallop, no JVD, S1-S2 no S3-S4. RESP: Clear lungs throughout bilateral, no crackles, wheeze, rhonchi, symmetrical chest rise, nonlabored, able to speak in full sentences ABD: Soft, NT, ND, no masses, positive bowel tones BACK: No CVAT EXT: Pulses +24, no dependent edema MS: Normal tone 4 extremities, nontender, no obvious deformities, full range of motion NEURO: CN II through CN XII grossly intact, motor strength 5/5, gait WNL PSYCH: A+O 3, pleasant affect, appropriate speech, appropriate mood and affect , insight and judgment SKIN: Normal turgor, normal texture, no lesions, no rashes, brisk cap refill, even hair distribution Laboratory Laboratory Tests Test 04/28/17 17:05 04/28/17 20:00 04/28/17 22:50 White Blood Count 6.8 Red Blood Count 3.96 Hemoglobin 12.3 Hematocrit 37.2 Mean Corpuscular Volume 93.8 Mean Corpuscular Hemoglobin 31.1 Mean Corpuscular Hemoglobin Concent 33.1 Red Cell Distribution Width 15.0 Platelet Count 239 Mean Platelet Volume 8.1 Neutrophils (%) (Auto) 57.3 Lymphocytes (%) (Auto) 27.9 Monocytes (%) (Auto) 9.6 Eosinophils (%) (Auto) 4.6 Basophils (%) (Auto) 0.6 Neutrophils # (Auto) 3.9 Lymphocytes # (Auto) 1.9 Monocytes # (Auto) 0.7 Eosinophils # (Auto) 0.3 Basophils # (Auto) 0.0 CBC Comment DIFF FINAL Differential Comment Prothrombin Time 10.2 Prothromb Time International Ratio 0.9 Activated Partial Thromboplast Time 25.4 Blood Urea Nitrogen 30 Creatinine 1.06 Random Glucose 122 Calcium Level 9.3 Magnesium Level 2.4 Sodium Level 139 Potassium Level 3.4 Chloride Level 104 Carbon Dioxide Level 26.4 Anion Gap 9 Estimat Glomerular Filtration Rate 53 Total Creatine Kinase 119 110 96 Creatine Kinase MB 2.3 2.2 Troponin I 0.02 0.02 0.02 Result Diagram: 04/28/17 1705 04/28/17 1705 Imaging Last Impressions Chest X-Ray 04/28/17 1638 Signed Impressions: Service Date/Time: March 17:05 - CONCLUSION: No acute disease. Nicola Martinez MD Course EKG NSR, normal axis, no st t segment changes Caprini VTE Risk Assessment Caprini VTE Risk Assessment: No/Low Risk (score <= 1) Caprini Risk Assessment Model Point Value = 1 Point Value = 2 Point Value = 3 Point Value = 5 Age 41-60 Minor surgery BMI > 25 kg/m2 Swollen legs Varicose veins or History of unexplained or recurrent spontaneous Oral contraceptives or hormone replacement Sepsis (< 1 month) Serious lung disease, including pneumonia (< 1 month) Abnormal pulmonary function Acute myocardial infarction Congestive heart failure (< 1 month) History of inflammatory bowel disease Medical patient at bed rest Age 61-74 Arthroscopic surgery Major open surgery (> 45 min) Laparoscopic surgery (> 45 min) Malignancy Confined to bed (> 72 hours) Immobilizing plaster cast Central venous access Age >= 75 History of VTE Family history of VTE Factor V Leiden Prothrombin [id number] Lupus anticoagulant Anticardiolipin antibodies Elevated serum homocysteine Heparin-induced thrombocytopenia Other congenital or acquired thrombophilia Stroke (< 1 month) Elective arthroplasty Hip, pelvis, or leg fracture Acute spinal cord injury (< 1 month) Prophylaxis Regimen Total Risk Factor Score Risk Level Prophylaxis Regimen 0-1 Low Early ambulation 2 Moderate Order ONE of the following: *Sequential Compression Device (SCD) *Heparin 5000 units SQ BID 3-4 Higher Order ONE of the following medications: *Heparin 5000 units SQ TID *Enoxaparin/Lovenox 40 mg SQ daily (WT < 150 kg, CrCl > 30 mL/min) *Enoxaparin/Lovenox 30 mg SQ daily (WT < 150 kg, CrCl > 10-29 mL/min) *Enoxaparin/Lovenox 30 mg SQ BID (WT < 150 kg, CrCl > 30 mL/min) AND/OR *Sequential Compression Device (SCD) 5 or more Highest Order ONE of the following medications: *Heparin 5000 units SQ TID (Preferred with Epidurals) *Enoxaparin/Lovenox 40 mg SQ daily (WT < 150 kg, CrCl > 30 mL/min) *Enoxaparin/Lovenox 30 mg SQ daily (WT < 150 kg, CrCl > 10-29 mL/min) *Enoxaparin/Lovenox 30 mg SQ BID (WT < 150 kg, CrCl > 30 mL/min) AND *Sequential Compression Device (SCD) Assessment and Plan Assessment and Plan #1 Atypical chest pain-admitted chest pain center. Ruled out with 3 sets of EKGs, cardiac enzymes, monitor overnight. Seen and evaluated by Dr. Annamaria Gauthier. Proceed with CT coronary angiogram this morning. Unremarkable of discharge later this afternoon. #2 Hypertension-continue amlodipine, lisinopril, HCTZ, metoprolol #3 Anxiety-0.5mg Ativan prior to CT coronary angiogram #4 History of DVT-continue Carli Waldrop Apr 29, 2017 08:44
[2017-04-29] MEDS ORDERED: ASPIRIN 325 MG TAB PO SCH (09:00)
[2017-04-29] MEDS ORDERED: METOPROLOL TARTRATE 5 MG/5 ML VIAL IV PRN (09:45)
[2017-04-29] MEDS ORDERED: NITROGLYCERIN 0.4 MG SL 25 TABS/BTL SL SCH (09:45)
[2017-04-29] MEDS ORDERED: METOPROLOL TARTRATE 50 MG TAB PO SCH ×2 (09:45→10:00)
[2017-04-29] MEDS ORDERED: amLODIPine BESYLATE 5 MG TAB PO SCH (10:00)
[2017-04-29] MEDS ORDERED: LISINOPRIL 20 MG TAB PO SCH (10:00)
[2017-04-29] MEDS ORDERED: RIVAROXABAN 20 MG TAB PO SCH (10:00)
[2017-04-29] MEDS ORDERED: LORazepam 0.5 MG TAB PO ONE (10:00)
[2017-04-29] MEDS ORDERED: NITROGLYCERIN 0.4 MG SL 25 TABS/BTL SL ONE (14:17)
[2017-04-29] MEDS ORDERED: IOHEXOL 350 MG/ML 10 ML VIAL (for RAD DIAG) IVCONTRAST ONE (15:16)
--- NOTE | 2017-04-29 15:56 | RADRPT ---
EXAM DATE/TIME: 04/29/2017 14:37 [facility] COMPARISON: No previous studies available for comparison. INDICATIONS : Chest pain. IV CONTRAST: 75 cc Omnipaque 350 (iohexol) IV RADIATION DOSE: 8.81 CTDIvol (mGy) MEDICAL HISTORY : Hypertension. Diabetes mellitus type 2. SURGICAL HISTORY : Hysterectomy. ENCOUNTER: Initial ACUITY: 3 days PAIN SCALE: 0/10 LOCATION: Bilateral chest TECHNIQUE: Volumetric scanning was obtained through the heart. Images were acquired on a multislice multiple ro w detector helical scanner timed for acquisition during peak arterial contrast. Images were reconstr ucted using a retrospective gating algorithm including single sector and multi-sector algorithms at m ultiple phases of the cardiac cycle. Images were interpreted using a combination of 2D and 3D visual ization modes including curved planar reformation, thin slab maximum intensity projection and volume rendering. Using automated exposure control and adjustment of the mA and/or kV according to patient size, radiation dose was kept as low as reasonably achievable to obtain optimal diagnostic quality im ages. DICOM format image data is available electronically for review and comparison. FINDINGS: Calcium score is less than 25.. VESSEL ANALYSIS: DOMINANCE: The coronary system is right dominant.. LEFT MAIN: Normal vessel without calcification or stenosis. LAD: Minimal calcific plaque is seen in the proximal LAD and appears extraluminal. CIRCUMFLEX: Normal vessel without calcification or stenosis. RCA: Normal vessel without calcification or stenosis. OTHER: There is no pericardial effusion. CONCLUSION: Negative for significant cardiac atherosclerotic vascular disease. Large hiatal hernia. Jeremie Oliveira MD FACR on April 29, 2017 at 15:52 Board Certified Radiologist. This report was verified electronically.
--- NOTE | 2017-04-29 16:40 | HHI.DCPOC ---
Discharge Care Plan Diagnosis: (1) Atypical chest pain (2) Type 2 diabetes mellitus (3) Hypertension Goals to Promote Your Health * To prevent worsening of your condition and complications * To maintain your health at the optimal level Directions to Meet Your Goals Take your medications as prescribed Follow your dietary instruction Follow activity as directed Keep your appointments as scheduled Take your immunizations and boosters as scheduled If your symptoms worsen call your PCP, if no PCP go to Urgent Care Center or Emergency Room Smoking is Dangerous to Your Health. Avoid second hand smoke Call the 24-hour hour crisis hotline for domestic abuse at Carli Devi Apr 29, 2017 16:40
[2017-04-29] MEDS ORDERED: TOPIRAMATE 25 MG TAB PO SCH (21:00)
--- NOTE | 2017-04-30 00:45 | EKG ---
Date Performed: 04/28/2017 Time Performed: 23:53:10 PTAGE: 56 years EKG: SINUS BRADYCARDIA MODERATE INTRAVENTRICULAR CONDUCTION DELAY NONSPECIFIC T-WAVE ABNORMALITY ABNORMAL ECG PREVIOUS TRACING : 04/28/2017 20.47 Compared to prior tracing no significant change DOCTOR: Vazquez Diaz Interpretating Date/Time 04/30/2017 00:43:35
--- NOTE | 2017-04-30 00:54 | EKG ---
Date Performed: 04/28/2017 Time Performed: 20:47:58 PTAGE: 56 years EKG: SINUS BRADYCARDIA MODERATE INTRAVENTRICULAR CONDUCTION DELAY NONSPECIFIC T-WAVE ABNORMALITY BORDERLINE ECG PREVIOUS TRACING : 04/28/2017 16.44 Compared to prior tracing no significant change DOCTOR: Vazquez Diaz Interpretating Date/Time 04/30/2017 00:53:47
--- NOTE | 2017-04-30 01:08 | EKG ---
Date Performed: 04/28/2017 Time Performed: 16:44:54 PTAGE: 56 years EKG: SINUS BRADYCARDIA LEFT VENTRICULAR HYPERTROPHY AND ST-T CHANGE ABNORMAL ECG PREVIOUS TRACING : 11/25/2016 01.44 Compared to the previous tracing, LVH criteria now noted DOCTOR: Vazquez Diaz Interpretating Date/Time 04/30/2017 01:08:02
== END 2017-04-29 18:05 | disposition home or self-care (01) ==
LOC: NEPC 16:33 → NEDA 18:27 → NEPFCDU 19:38
PROVIDERS: ADMIT Internal Medicine Interventional Cardiology; ATTEND Internal Medicine Interventional Cardiology
DX: R07.89 Other chest pain (principal); E11.9 Type 2 diabetes mellitus without complications; I82.502 Chronic embolism and thrombosis of unspecified deep veins of left lower extremity; I10 Essential (primary) hypertension; R94.31 Abnormal electrocardiogram [ECG] [EKG]; Z85.3 Personal history of malignant neoplasm of breast; Z85.41 Personal history of malignant neoplasm of cervix uteri; Z79.01 Long term (current) use of anticoagulants
CPT/HCPCS: 71010; 75574; 76937; 80048; 82550; 82552; 83735; 84484; 85025; 85610; 85730; 93005; 99285; G0378; Q9967

== ENCOUNTER 2017-09-09 22:41 | Inpatient (IN) | payer OTHER ==
[~2017-09-09] VITALS: Ht 160 cm; Wt 102.3 kg
[~2017-09-09 22:41] MED LIST changes: -LORA-373 PO; +LORA0.5T PO; -TOPI1TAB31 PO; +TOPI50TA7 PO
[2017-09-09 22:43] VITALS: BP 131/85; PULSE 114; RESP 16; O2SAT 100
[2017-09-09] MEDS ORDERED: SODIUM CHLOR 0.9% 250 ML INJ 250 ML IV ONE (22:45)
[2017-09-09] MEDS ORDERED: PANTOPRAZOLE INJ 80 MG in SODIUM CHLORIDE 0.9% INJ 35 ML IV ONE (22:45)
[2017-09-09] MEDS ORDERED: SODIUM CHLORIDE 0.9% FLUSH 10 ML FLUSH IVF PRN (22:45)
[2017-09-09] MEDS ORDERED: PANTOPRAZOLE INJ 80 MG in SODIUM CHLORIDE 0.9% INJ 100 ML IV SCH (22:45)
[2017-09-09] MEDS ORDERED: SODIUM CHLOR 0.9% 1000 ML INJ 1,000 ML IV SCH ×2 (22:45→23:30)
[2017-09-09] MEDS ORDERED: OXYC1CAP PO (22:58)
[2017-09-09] MEDS ORDERED: ALLO100T PO (22:58)
[2017-09-09] MEDS ORDERED: FURO40TA PO (22:58)
[2017-09-09] MEDS ORDERED: ZOLP10TA3 PO (22:58)
[2017-09-09] MEDS ORDERED: ASPI-516 CHEW (22:58)
[2017-09-09] MEDS ORDERED: POTA10TA2 PO (22:58)
[2017-09-09] MEDS ORDERED: TOPI50TA7 PO (22:58)
[2017-09-09] MEDS ORDERED: TRAZ50TA12 PO (22:58)
[2017-09-09] MEDS ORDERED: WARF-23 PO (22:58)
[2017-09-09] MEDS ORDERED: METO25TA3 PO (22:58)
[2017-09-09 23:21] LABS: AUTOMATED NEUTROPHIL # 10.6 TH/MM3 (1.8-7.7); BASOPHIL # 0.1 TH/MM3 (0-0.2); BASOPHIL % 0.5 % (0.0-2.0); EOSINOPHIL # 0.3 TH/MM3 (0-0.4); EOSINOPHIL % 1.7 % (0.0-4.0); HEMATOCRIT 21.7 % (35.0-46.0); LYMPH % 26.1 % (9.0-44.0); LYMPHOCYTE # 4.1 TH/MM3 (1.0-4.8); MEAN CORPUSCULAR HEMOGLOBIN 30.2 PG (27.0-34.0); MEAN PLATELET VOLUME 8.6 FL (7.0-11.0); MONO % 3.7 % (0.0-8.0); MONOCYTE # 0.6 TH/MM3 (0-0.9); PLATELET COUNT 314 TH/MM3 (150-450); RED BLOOD COUNT 2.15 MIL/MM3 (4.00-5.30); RED CELL DISTRIBUTION WIDTH 16.4 % (11.6-17.2); WHITE BLOOD COUNT 15.5 TH/MM3 (4.0-11.0)
[2017-09-09 23:22] LABS: MEAN CORPUSCULAR HGB CONC 29.9 % (32.0-36.0)
[2017-09-09 23:24] LABS: HEMOGLOBIN 6.5 GM/DL (11.6-15.3)
--- NOTE | 2017-09-09 23:25 | RADRPT ---
EXAM DATE/TIME: 09/09/2017 23:03 [facility] COMPARISON: CHEST SINGLE AP, April 28, 2017, 17:05. INDICATIONS : Syncope. MEDICAL HISTORY : Hypertension. Diabetes mellitus type 2. SURGICAL HISTORY : Hysterectomy. CABG. ENCOUNTER: Initial ACUITY: 1 day PAIN SCORE: 0/10 LOCATION: Bilateral cranial FINDINGS: A single view of the chest demonstrates the lungs to be symmetrically aerated without evidence of mas s, infiltrate or effusion. The heart size is enlarged but stable compared to the prior study. There is evidence of previous cardiothoracic surgery.. Osseous structures are intact. CONCLUSION: No acute disease. No significant change has occurred. Prateek Acevedo MD on September 09, 2017 at 23:22 Board Certified Radiologist. This report was verified electronically.
--- NOTE | 2017-09-09 23:28 | HHI.HP ---
HPI Service Critical Care Medicine Primary Care Physician Unknown Admission Diagnosis Diagnosis: Travel History International Travel<30 Days: No Contact w/Intl Traveler <30 Da: No Traveled to Known Affected Are: No History of Present Illness 56-year-old female presents from home by EMS transport for evaluation of generalized weakness diaphoresis and near syncope. Patient states she noted since yesterday black tarry frequent diarrhea. Patient denies any nausea or vomiting or abdominal pain. Patient denies recent antibiotic use. 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 She was also started on Coumadin at that time for DVT. In the emergency department her INR was found to be 10 and a hemoglobin 6.5. Review of Systems Constitutional: COMPLAINS OF: Fatigue, Dizziness, DENIES: Diaphoretic episodes , Fever, Weight gain, Weight loss, Chills, Change in appetite, Night Sweats Endocrine: DENIES: Abnorml menstrual pattern, Heat/cold intolerance, Polydipsia , Polyuria, Polyphagia Eyes: DENIES: Blurred vision, Diplopia, Eye inflammation, Eye pain, Vision loss , Photosensitivity, Double Vision Ears, nose, mouth, throat: DENIES: Tinnitus, Hearing loss, Vertigo, Nasal discharge, Oral lesions, Throat pain, Hoarseness, Ear Pain, Running Nose, Epistaxis, Sinus Pain, Toothache, Odynophagia Respiratory: DENIES: Apneas, Cough, Snoring, Wheezing, Hemoptysis, Sputum production, Shortness of breath Cardiovascular: DENIES: Chest pain, Palpitations, Syncope, Dyspnea on Exertion , PND, Lower Extremity Edema, Orthopnea, Claudication Gastrointestinal: COMPLAINS OF: Black stools, Diarrhea, DENIES: Abdominal pain , Bloody stools, Constipation, Nausea, Vomiting, Difficulty Swallowing, Anorexia Genitourinary: DENIES: Abnormal vaginal bleeding, Dysmenorrhea, Dyspareunia, Sexual dysfunction, Urinary frequency, Urinary incontinence, Urgency, Hematuria , Dysuria, Nocturia, Vaginal discharge Musculoskeletal: DENIES: Joint pain, Muscle aches, Stiffness, Joint Swelling, Back pain, Neck pain Integumentary: DENIES: Abnormal pigmentation, Pruritus, Rash, Nail changes, Breast masses, Breast skin changes, Nipple discharge Hematologic/lymphatic: DENIES: Bruising, Lymphadenopathy Immunologic/allergic: DENIES: Eczema, Urticaria Neurologic: COMPLAINS OF: Poor Balance, DENIES: Abnormal gait, Headache, Localized weakness, Paresthesias, Seizures, Speech Problems, Tremor Psychiatric: DENIES: Anxiety, Confusion, Mood changes, Depression, Hallucinations, Agitation, Suicidal Ideation, Homicidal Ideation, Delusions Past Family Social History Allergies: Coded Allergies: Sulfa (Sulfonamide Antibiotics) (Unverified Allergy, Unknown, 09/09/17) Past Medical History Diabetes (diet controlled at this time), HTN, Left leg DVT, hyperlipidemia, breast cancer (never required chemotherapy or radiation), cervical cancer ( never required chemotherapy or radiation), depression, CVA (5 years ago) Past Surgical History Hysterectomy, cholecystectomy, lumpectomy, cervical mass removed, valve replacement Reported Medications Reported Meds & Active Scripts Active Reported Oxycodone (Oxycodone HCl) 5 Mg Cap 5 Mg PO Q6H PRN Warfarin 5 Mg Tab 5 Mg PO DAILY Topiramate 50 Mg Tab 100 Mg PO HS Trazodone (Trazodone HCl) 50 Mg Tab 50 Mg PO HS Zolpidem (Zolpidem Tartrate) 10 Mg Tab 10 Mg PO HS PRN Aspirin 81 Mg Chew 81 Mg CHEW DAILY Furosemide 40 Mg Tab 40 Mg PO DAILY Allopurinol 100 Mg Tab 100 Mg PO DAILY Potassium Chloride ER (Potassium Chloride) 10 Meq Tab 10 Meq PO BID Metoprolol Tartrate 25 Mg Tab 25 Mg PO BID Lorazepam 0.5 Mg Tab 0.5 Mg PO DAILY PRN Amlodipine (Amlodipine Besylate) 2.5 Mg Tab 2.5 Mg PO DAILY Active Ordered Medications Current Medications Medications (Trade) Dose Ordered Sig/Reina Route PRN Reason Start Time Stop Time Status Last Admin Dose Admin Sodium Chloride 250 ml @ 15 mls/hr ONCE ONCE IV 09/09/17 22:45 09/10/17 15:24 Sodium Chloride 1,000 ml @ 1,000 mls/hr Q1H IV 09/09/17 22:45 09/09/17 23:44 Sodium Chloride (NS Flush) 2 ml UNSCH PRN IVF FLUSH AFTER USING IV ACCESS 09/09/17 22:45 Pantoprazole Sodium 80 mg/ Sodium Chloride 100 ml @ 10 mls/hr Q10H IV 09/09/17 22:45 Family History No family history of early coronary artery disease Social History Lifelong nonsmoker. Denies any alcohol or illegal drug use. Physical Exam Vital Signs Vital Signs Date Time Temp Pulse Resp B/P (MAP) Pulse Ox O2 Delivery O2 Flow Rate FiO2 09/09/17 22:43 114 16 131/85 (100) 100 Physical Exam GENERAL: Well-nourished, well-developed patient. Extremely pale SKIN: Warm and dry. HEAD: Normocephalic. EYES: No scleral icterus. No injection or drainage. NECK: Supple, trachea midline. No JVD or lymphadenopathy. CARDIOVASCULAR: Regular rate and rhythm without murmurs, gallops, or rubs. RESPIRATORY: Breath sounds equal bilaterally. No accessory muscle use. GASTROINTESTINAL: Abdomen soft, non-tender, nondistended. MUSCULOSKELETAL: No cyanosis, or edema. BACK: Nontender without obvious deformity. NEURO EXAM: GCS: 15 Mental Status: The patient is alert and oriented to person, place, and time with normal speech. Cranial Nerves: Visual acuity intact bilaterally. Visual faustin normal in all quadrants. Pupils are round, reactive to light. Extraocular movements are intact without ptosis. Hearing is normal bilaterally. Voice is normal. Tongue protrudes midline and moves symmetrically. Reflexes: Biceps, patellar, and Achilles are 2/4 bilaterally. No clonus. Sensation: Sensation is intact bilaterally to pain and light touch. Two-point discrimination is intact. Motor: Good muscle tone. Strength is 5/5 bilaterally. Cerebellar: [id number] and [id number] test normal bilaterally. Laboratory Laboratory Tests Test 09/09/17 23:00 White Blood Count 15.5 Red Blood Count 2.15 Hemoglobin 6.5 Hematocrit 21.7 Mean Corpuscular Volume 101.0 Mean Corpuscular Hemoglobin 30.2 Mean Corpuscular Hemoglobin Concent 29.9 Red Cell Distribution Width 16.4 Platelet Count 314 Mean Platelet Volume 8.6 Neutrophils (%) (Auto) 68.0 Lymphocytes (%) (Auto) 26.1 Monocytes (%) (Auto) 3.7 Eosinophils (%) (Auto) 1.7 Basophils (%) (Auto) 0.5 Neutrophils # (Auto) 10.6 Lymphocytes # (Auto) 4.1 Monocytes # (Auto) 0.6 Eosinophils # (Auto) 0.3 Basophils # (Auto) 0.1 CBC Comment AUTO DIFF Result Diagram: 09/09/17 2300 Septic Shock Reassessment Septic shock perfusion: reassessment completed Caprini VTE Risk Assessment Caprini VTE Risk Assessment: Mod/High Risk (score >= 2) Caprini Risk Assessment Model Point Value = 1 Point Value = 2 Point Value = 3 Point Value = 5 Age 41-60 Minor surgery BMI > 25 kg/m2 Swollen legs Varicose veins or History of unexplained or recurrent spontaneous Oral contraceptives or hormone replacement Sepsis (< 1 month) Serious lung disease, including pneumonia (< 1 month) Abnormal pulmonary function Acute myocardial infarction Congestive heart failure (< 1 month) History of inflammatory bowel disease Medical patient at bed rest Age 61-74 Arthroscopic surgery Major open surgery (> 45 min) Laparoscopic surgery (> 45 min) Malignancy Confined to bed (> 72 hours) Immobilizing plaster cast Central venous access Age >= 75 History of VTE Family history of VTE Factor V Leiden Prothrombin [id number] Lupus anticoagulant Anticardiolipin antibodies Elevated serum homocysteine Heparin-induced thrombocytopenia Other congenital or acquired thrombophilia Stroke (< 1 month) Elective arthroplasty Hip, pelvis, or leg fracture Acute spinal cord injury (< 1 month) Prophylaxis Regimen Total Risk Factor Score Risk Level Prophylaxis Regimen 0-1 Low Early ambulation 2 Moderate Order ONE of the following: *Sequential Compression Device (SCD) *Heparin 5000 units SQ BID 3-4 Higher Order ONE of the following medications: *Heparin 5000 units SQ TID *Enoxaparin/Lovenox 40 mg SQ daily (WT < 150 kg, CrCl > 30 mL/min) *Enoxaparin/Lovenox 30 mg SQ daily (WT < 150 kg, CrCl > 10-29 mL/min) *Enoxaparin/Lovenox 30 mg SQ BID (WT < 150 kg, CrCl > 30 mL/min) AND/OR *Sequential Compression Device (SCD) 5 or more Highest Order ONE of the following medications: *Heparin 5000 units SQ TID (Preferred with Epidurals) *Enoxaparin/Lovenox 40 mg SQ daily (WT < 150 kg, CrCl > 30 mL/min) *Enoxaparin/Lovenox 30 mg SQ daily (WT < 150 kg, CrCl > 10-29 mL/min) *Enoxaparin/Lovenox 30 mg SQ BID (WT < 150 kg, CrCl > 30 mL/min) AND *Sequential Compression Device (SCD) Assessment and Plan Assessment and Plan Melena with GI bleed - Protonix IV twice a day - Gastroenterology consultation - Reverse coagulopathy - Series of H&H - Kcentra - Vitamin K - FFP's Anemia - Due to blood loss - Transfuse to keep hemoglobin above 7 - H&H every 6 hours Diabetes - Insulin sliding scale Seizure disorder - Continue Topamax when okay by mouth Hypotension - Hold antihypertensive medications due to borderline hypertension - Resume when indicated History of DVT - Hold Coumadin due to acute GI bleed - Further per GI DVT GI prophylaxis - Teds SCDs - No pharmacological DVT prophylaxis due to acute GI bleed - Protonix IV twice a day Critical Care: The total critical care time was 35 minutes. Time to perform other separately billable procedures was not included in the critical care time. Shane Whiteside MD Sep 09, 2017 23:28
--- NOTE | 2017-09-09 23:28 | PD ---
HPI Chief Complaint: GI Complaint Time Seen by Provider: 22:45 Travel History International Travel<30 days: No Contact w/Intl Traveler<30days: No Traveled to known affect area: No History of Present Illness HPI 56-year-old female presents to the emergency department from home by EMS transport for evaluation of generalized weakness diaphoresis and near syncope. Patient states she noted since yesterday black tarry frequent diarrhea. Patient denies any nausea or vomiting or abdominal pain. Patient denies recent antibiotic use. Patient underwent recent valve replacement. Patient is on warfarin. Patient has noticed over the past 2 days progressive weakness. No prior history of GI bleed. No chest pain, positive shortness of breath, nausea without vomiting, no urinary symptoms, no recent fall or injury. Patient is diabetic. No complaint of pain. PFSH Past Medical History Narrative Medical Valve replacement, diabetes, dyslipidemia, CVA, hysterectomy cholecystectomy; nursing notes reviewed Hx Anticoagulant Therapy: Yes (WARFARIN, 81MG ASA) Heart Rhythm Problems: No Cardiac Catheterization: No Cardiovascular Problems: Yes High Cholesterol: Yes Congestive Heart Failure: No Cerebrovascular Accident: Yes Diabetes: Yes Patient Takes Glucophage: No Diminished Hearing: No Hypertension: Yes Respiratory: Yes Immunizations Current: Yes Past Surgical History Cholecystectomy: Yes Coronary Artery Bypass Graft: No Gynecologic Surgery: Yes Hysterectomy: Yes (1996) Social History Alcohol Use: No Tobacco Use: No Substance Use: No (12 YEARS CLEAN) Allergies-Medications (Allergen,Severity, Reaction): Coded Allergies: Sulfa (Sulfonamide Antibiotics) (Unverified Allergy, Unknown, 09/09/17) Reported Meds & Prescriptions Reported Meds & Active Scripts Active Reported Oxycodone (Oxycodone HCl) 5 Mg Cap 5 Mg PO Q6H PRN Warfarin 5 Mg Tab 5 Mg PO DAILY Topiramate 50 Mg Tab 100 Mg PO HS Trazodone (Trazodone HCl) 50 Mg Tab 50 Mg PO HS Zolpidem (Zolpidem Tartrate) 10 Mg Tab 10 Mg PO HS PRN Aspirin 81 Mg Chew 81 Mg CHEW DAILY Furosemide 40 Mg Tab 40 Mg PO DAILY Allopurinol 100 Mg Tab 100 Mg PO DAILY Potassium Chloride ER (Potassium Chloride) 10 Meq Tab 10 Meq PO BID Metoprolol Tartrate 25 Mg Tab 25 Mg PO BID Lorazepam 0.5 Mg Tab 0.5 Mg PO DAILY PRN Amlodipine (Amlodipine Besylate) 2.5 Mg Tab 2.5 Mg PO DAILY Review of Systems Except as stated in HPI: all other systems reviewed are Neg Physical Exam Narrative GENERAL: Well-developed well-nourished pale female in obvious distress SKIN: Warm and dry. HEAD: Normocephalic. EYES: No scleral icterus. No injection or drainage. Conjunctival pallor. ENT mucous membranes moist pale gingiva. NECK: Supple, trachea midline. No JVD or lymphadenopathy. CARDIOVASCULAR: Increased Regular rate and rhythm without murmurs, gallops, or rubs. RESPIRATORY: Breath sounds equal bilaterally. No accessory muscle use. GASTROINTESTINAL: Abdomen soft, non-tender, nondistended. MUSCULOSKELETAL: No cyanosis, or edema. BACK: Nontender without obvious deformity. No CVA tenderness. Data Data Last Documented VS Vital Signs Date Time Temp Pulse Resp B/P (MAP) Pulse Ox O2 Delivery O2 Flow Rate FiO2 09/10/17 01:07 97.8 108 23 91/56 98 Orders Orders Type And Screen (09/09/17 22:45) Sodium Chlor 0.9% 250 Ml Inj (Ns 250 Ml (09/09/17 22:45) Complete Blood Count With Diff (09/09/17 22:45) Comprehensive Metabolic Panel (09/09/17 22:45) Lipase (09/09/17 22:45) Ammonia (09/09/17 22:45) Prothrombin Time / Inr (Pt) (09/09/17 22:45) Act Partial Throm Time (Ptt) (09/09/17 22:45) Chest, Single Ap (09/09/17 22:45) Ecg Monitoring (09/09/17 22:45) Iv Access Insert/Monitor (09/09/17 22:45) Oximetry (09/09/17 22:45) Sodium Chlor 0.9% 1000 Ml Inj (Ns 1000 M (09/09/17 22:45) Sodium Chloride 0.9% Flush (Ns Flush) (09/09/17 22:45) Sodium Chloride 0.9... W/Pantoprazole In (09/09/17 22:45) Sodium Chloride 0.9... W/Pantoprazole In (09/09/17 22:45) Beta Hydroxybutyrate (Acetone) (09/09/17 22:45) Urinary Catheter Insert/Apply (09/09/17 22:45) Allopurinol (Zyloprim) (09/10/17 09:00) Lorazepam (Ativan) (09/09/17 23:30) Trazodone (Desyrel) (09/10/17 21:00) Red Blood Cells (Rbc) (09/09/17 23:28) Blood Product Administration (09/09/17 23:28) Zolpidem (Ambien) (09/09/17 23:30) Admit To Inpatient (09/09/17 ) Code Status (09/09/17 23:30) Vital Signs (Adult) VIOLETTA.Q1H (09/09/17 23:30) Activity Bed Rest (09/09/17 23:30) Elevate Head Of Bed (09/09/17 23:30) Diet Npo (09/10/17 Breakfast) Sodium Chlor 0.9% 1000 Ml Inj (Ns 1000 M (09/09/17 23:30) Sodium Chloride 0.9% Flush (Ns Flush) (09/09/17 23:30) Sodium Chloride 0.9% Flush (Ns Flush) (09/10/17 09:00) Acetaminophen (Tylenol) (09/09/17 23:30) Morphine Inj (Morphine Inj) (09/09/17 23:30) Ondansetron Inj (Zofran Inj) (09/09/17 23:30) Albuterol-Ipratropium Neb (Duoneb Neb) (09/09/17 23:30) Complete Blood Count With Diff (09/10/17 04:00) Comprehensive Metabolic Panel (09/10/17 04:00) Act Partial Throm Time (Ptt) (09/10/17 04:00) Prothrombin Time / Inr (Pt) (09/10/17 04:00) Magnesium (Mg) (09/10/17 04:00) Phosphorus (Po4) (09/10/17 04:00) Pt Request For Service (09/09/17 23:30) Consult Gastroenterology (09/09/17 ) Talent Sourcer / Telemetry VIOLETTA.Q8H (09/09/17 23:30) Scd Bilateral/Knee High VIOLETTA.BID (09/09/17 23:30) Ancelmo Bilateral/Knee High VIOLETTA.QSHIFT (09/09/17 23:30) Pharmacologic Contraindication (09/09/17 23:30) ^ Initiate Protocol (09/09/17 23:30) Instruction (09/09/17 23:30) [facility] [place]09/09/17 23:30) Chlorhexidine 2% Cloth (Chlorhexidine 2% (09/10/17 04:00) Chlorhexidine 2% Cloth (Chlorhexidine 2% (09/09/17 23:30) Mrsa Pcr Surveillance (09/09/17 23:30) Docusate Sodium-Senna (Edel-Colace) (09/10/17 09:00) Magnesium Hydroxide Liq (Milk Of Magnesi (09/09/17 23:30) Sennosides (Senokot) (09/09/17 23:30) Bisacodyl Supp (Dulcolax Supp) (09/09/17 23:30) Lactulose Liq (Lactulose Liq) (09/09/17 23:30) Inpatient Certification (09/09/17 ) Topiramate (Topamax) (09/10/17 21:00) Fresh Frozen Plasma (Ffp) (09/09/17 23:34) Phytonadione Inj (Vitamin K Inj) (09/10/17 09:00) Blood Glucose Goal (Criteria) (09/09/17 23:44) Hypoglycemia 70 Mg/Dl Or < (09/09/17 23:44) Notify Dr: Other (09/09/17 23:44) Dextrose 50% In Nivia (Vial) Inj (D50w (Vi (09/09/17 23:45) Glucagon Inj (Glucagon Inj) (09/09/17 23:45) Insulin Human Reg Supp Scale (Novolin R (09/10/17 08:00) Pantoprazole Inj (Protonix Inj) (09/10/17 00:00) (Hub Use Only)Inp Phy Cons/Ref (09/09/17 ) Insulin Human Regular Inj (Novolin R Inj (09/10/17 00:00) Sodium Chlor 0.9% 1000 Ml Inj (Ns 1000 M (09/10/17 00:00) Blood Gas Venous Ph (09/09/17 23:54) Blood Glucose (09/09/17 23:54) ^ Lab Follow Up (09/10/17 00:29) Phytonadione Inj (Vitamin K Inj) (09/10/17 00:30) Prothrombin Complex Conc Inj (Kcentra In (09/10/17 00:45) Osmolality,Serum (09/10/17 00:29) Magnesium (Mg) (09/10/17 00:29) Phosphorus (Po4) (09/10/17 00:29) Chest, Single Ap (09/10/17 ) Admit To Inpatient (09/10/17 ) Talent Sourcer / Telemetry VIOLETTA.Q8H (09/10/17 01:10) ^ Insert Iv (09/10/17 01:10) ^ Teach Patient (09/10/17 01:10) Bedside Glucose VIOLETTA.Q1H (09/10/17 01:10) Sodium Chlor 0.9% 1000 Ml Inj (Ns 1000 M (09/10/17 01:10) Dext 5%-Nacl 0.9% 1000 Ml Inj (D5w-Ns 10 (09/10/17 01:10) Insulin Human Regular Inj (Novolin R Inj (09/10/17 01:15) Insulin Regular (Iv Infusion) (Novolin R (09/10/17 01:15) Potassium Chlor 40 Meq Premix (Kcl 40 Me (09/10/17 01:15) Potassium Chlor 40 Meq Premix (Kcl 40 Me (09/10/17 01:15) Potassium Chlor 20 Meq Premix (Kcl 20 Me (09/10/17 01:15) Potassium Chlor 20 Meq Premix (Kcl 20 Me (09/10/17 01:15) Potassium Chlor 20 Meq Premix (Kcl 20 Me (09/10/17 01:15) Potassium Chlor 20 Meq Premix (Kcl 20 Me (09/10/17 01:15) Potassium Chlor 20 Meq Premix (Kcl 20 Me (09/10/17 01:15) Potassium Chlor 20 Meq Premix (Kcl 20 Me (09/10/17 01:15) Sodium Bicarbonate 8.4% Inj (Sodium Bica (09/10/17 01:15) Sodium Bicarbonate 8.4% Inj (Sodium Bica (09/10/17 01:15) Sodium Phosphate Inj (Sodium Phosphate I (09/10/17 01:15) Basic Metabolic Panel (Bmp) (09/10/17 12:10) Basic Metabolic Panel (Bmp) (09/11/17 00:10) Magnesium (Mg) (09/10/17 12:10) Magnesium (Mg) (09/11/17 00:10) Phosphorus (Po4) (09/10/17 12:10) Phosphorus (Po4) (09/11/17 00:10) Beta Hydroxybutyrate (Acetone) (09/10/17 12:10) Beta Hydroxybutyrate (Acetone) (09/11/17 00:10) ^ Initiate Protocol (09/10/17 01:10) Instruction (09/10/17 01:10) [facility] [place] (09/10/17 01:15) Chlorhexidine 2% Cloth (Chlorhexidine 2% (09/10/17 04:00) Chlorhexidine 2% Cloth (Chlorhexidine 2% (09/10/17 01:15) Mrsa Pcr Surveillance (09/10/17 01:10) Admit Order (Ed Use Only) (09/10/17 ) Talent Sourcer / Telemetry VIOLETTA.Q8H (09/10/17 01:10) Activity Bed Rest (09/10/17 01:10) Notify Dr: Other (09/10/17 01:10) Fibrinogen (09/10/17 04:45) Protein Corrected Calcium(Pcc) (09/10/17 11:50) Labs Laboratory Tests Test 09/09/17 23:00 09/09/17 23:35 09/10/17 00:15 White Blood Count 15.5 TH/MM3 Red Blood Count 2.15 MIL/MM3 Hemoglobin 6.5 GM/DL Hematocrit 21.7 % Mean Corpuscular Volume 101.0 FL Mean Corpuscular Hemoglobin 30.2 PG Mean Corpuscular Hemoglobin Concent 29.9 % Red Cell Distribution Width 16.4 % Platelet Count 314 TH/MM3 Mean Platelet Volume 8.6 FL Neutrophils (%) (Auto) 68.0 % Lymphocytes (%) (Auto) 26.1 % Monocytes (%) (Auto) 3.7 % Eosinophils (%) (Auto) 1.7 % Basophils (%) (Auto) 0.5 % Neutrophils # (Auto) 10.6 TH/MM3 Lymphocytes # (Auto) 4.1 TH/MM3 Monocytes # (Auto) 0.6 TH/MM3 Eosinophils # (Auto) 0.3 TH/MM3 Basophils # (Auto) 0.1 TH/MM3 CBC Comment AUTO DIFF Differential Total Cells Counted 100 Neutrophils % (Manual) 67 % Band Neutrophils % 7 % Lymphocytes % 18 % Monocytes % 1 % Eosinophils % 2 % Basophils % 2 % Neutrophils # (Manual) 11.9 TH/MM3 Metamyelocytes 1 % Myelocytes 2 % Differential Comment FINAL DIFF MANUAL Dohle Bodies Platelet Estimate NORMAL Platelet Morphology Comment NORMAL Basophilic Stippling FAINT Acanthocytes OCC Blood Urea Nitrogen 60 MG/DL Creatinine 1.54 MG/DL Random Glucose 557 MG/DL Total Protein 4.7 GM/DL Albumin 2.0 GM/DL Calcium Level 7.5 MG/DL Alkaline Phosphatase 121 U/L Aspartate Amino Transf (AST/SGOT) 14 U/L Alanine Aminotransferase (ALT/SGPT) 33 U/L Total Bilirubin 0.1 MG/DL Sodium Level 139 MEQ/L Potassium Level 4.3 MEQ/L Chloride Level 107 MEQ/L Carbon Dioxide Level 13.2 MEQ/L Anion Gap 19 MEQ/L Estimat Glomerular Filtration Rate 35 ML/MIN Protein Corrected Calcium 8.9 MG/DL Phosphorus Level 0.9 MG/DL Magnesium Level 0.6 MG/DL Ammonia 17 MCMOL/L Lipase 313 U/L B-Hydroxybutyrate 0.19 MMOL/L Prothrombin Time 99.5 SEC Prothromb Time International Ratio 10.0 RATIO Activated Partial Thromboplast Time 38.6 SEC Venous Blood pH 7.27 MDM Medical Decision Making Medical Screen Exam Complete: Yes Emergency Medical Condition: Yes Medical Record Reviewed: Yes Interpretation(s) EKG sinus tachycardia no acute ST elevation or injury pattern CBC is automated differential remarkable for hemoglobin of 6.5, present illness is 15,507% bands Metabolic panel blood sugar elevated at 557 anion gap of 19 with a bicarbonate or 13 acute renal insufficiency with BUN and creatinine of 60/1.54; serum ammonia was not elevated at 17 INR elevated at 10 Acetone 0.19 not elevated cxr: nad Differential Diagnosis GI bleed, Coumadin coagulopathy, platelet disturbance, upper GI bleed, lower GI bleed, uncontrolled diabetes, ACS, NC, sepsis Narrative Course Patient placed on carpenters with continuous pulse oximetry; patient noted to have pallor; blood pressure low normal however patient remains tachycardic; specimens collected and sent for resulting with blood products Patient resting comfortably supine but any upright position makes her become symptomatic Hemoglobin identified as 6.5; 2 units of blood ordered stat Patient's case discussed with on-call teletype mechanic as she will need to be admitted to the ICU for GI bleed on Coumadin with hemorrhagic shock At 12:30 AM INR cold as critical 10.0; patient with anemia tachycardia hypotension and active GI bleed patient given vitamin K, FFP, and vitamin K per protocol. Sales Demonstrator notified @ 12:38 AM teletype mechanic at the bedside; patient is being admitted and transferred to ICU Critical Care Narrative Aggregate critical care time was 30 minutes. Time to perform other separately billable procedures was not included in the critical care time. My time did not include minutes spent treating any other patients simultaneously or on activities that did not directly contribute to the patient's treatment. The services I provided to this patient were to treat and/or prevent clinically significant deterioration that could result in: Hemorrhagic shock, septic shock , I provided critical care services requiring my management, as noted below: Chart data review, documentation time, medication orders and management, vital sign assessments/reviewing monitor data, ordering and reviewing lab tests, ordering and interpreting/reviewing x-rays and diagnostic studies, care of the patient and discussion of the patient with the admitting physicians. Diagnosis Primary Impression: GI bleed Qualified Codes: K92.2 - Gastrointestinal hemorrhage, unspecified Additional Impressions: Hemorrhagic shock Bleeding on Coumadin Anemia Admitting Information Admitting Physician Requests: Admit Clarisa Shrestha MD Sep 09, 2017 23:28
[2017-09-09] MEDS ORDERED: CHLORHEXIDINE GLUCONATE 2 % 1 PACK (2 CLOTHS) TOP PRN (23:30)
[2017-09-09] MEDS ORDERED: LACTULOSE SYRUP 20 GM/30 ML CUP PO PRN (23:30)
[2017-09-09] MEDS ORDERED: ZOLPIDEM TARTRATE 10 MG TAB PO PRN (23:30)
[2017-09-09] MEDS ORDERED: SODIUM CHLORIDE 0.9% FLUSH 10 ML FLUSH IV FLUSH PRN (23:30)
[2017-09-09] MEDS ORDERED: ACETAMINOPHEN 325 MG TAB PO PRN (23:30)
[2017-09-09] MEDS ORDERED: SENNOSIDES 8.6 MG TAB PO PRN (23:30)
[2017-09-09] MEDS ORDERED: MISCELLANEOUS NURSING INFORMATION XX SCH (23:30)
[2017-09-09] MEDS ORDERED: MAGNESIUM HYDROXIDE SUSP 30 ML CUP PO PRN (23:30)
[2017-09-09] MEDS ORDERED: RESP: ALBUTEROL 2.5 MG/IPRATROPIUM 0.5 MG NEB (PRN) INH (23:30)
[2017-09-09] MEDS ORDERED: BISACODYL 10 MG SUPP RECTAL PRN (23:30)
[2017-09-09 23:38] LABS: BICARBONATE 13.2 MEQ/L (21.0-32.0); CALCIUM 7.5 MG/DL (8.5-10.1); CREATININE 1.54 MG/DL (0.50-1.00)
[2017-09-09 23:43] LABS: TOTAL BILIRUBIN ADULT 0.1 MG/DL (0.2-1.0); TOTAL PROTEIN 4.7 GM/DL (6.4-8.2)
[2017-09-09] MEDS ORDERED: GLUCAGON 1 MG/ML VIAL OTHER PRN (23:45)
[2017-09-09] MEDS ORDERED: DEXTROSE 50% IN WATER 50 ML VIAL(D50) IV PUSH PRN (23:45)
[2017-09-10] VITALS (22 sets, daily range): BP systolic 91–156; BP diastolic 46–83; PULSE 87–148; RESP 16–27; TEMP 97.8–99.3; O2SAT 98–100
[2017-09-10 00:08] LABS: PROTHROMBIN TIME - PATIENT 99.5 SEC (9.8-11.6)
[2017-09-10] MEDS ORDERED: PHYTONADIONE INJ 10 MG in SODIUM CHLORIDE 0.9% INJ 50 ML IV ONE (00:30)
[2017-09-10] MEDS ORDERED: PROTHROMBIN COMPLEX IV ONE (00:45)
[2017-09-10] MEDS: DEXT 5%-NACL 0.9% 1000 ML INJ 1,000 ML IV SCH ×4 (01:10→15:06)
[2017-09-10] MEDS ORDERED: SODIUM BICARBONATE 8.4% SOLN 50 MEQ/50 ML VIAL IV PUSH PRN ×2 (01:15)
[2017-09-10] MEDS ORDERED: CHLORHEXIDINE GLUCONATE 2 % 1 PACK (2 CLOTHS) TOP PRN (01:15)
[2017-09-10] MEDS ORDERED: POTASSIUM CHLOR 20 MEQ PREMIX 100 ML IV PRN ×6 (01:15)
[2017-09-10] MEDS ORDERED: INSULIN HUMAN REGULAR 1,000 UNITS/10 ML VIAL IV PUSH ONE ×2 (01:15)
[2017-09-10] MEDS ORDERED: MISCELLANEOUS NURSING INFORMATION XX SCH (01:15)
[2017-09-10] MEDS ORDERED: SODIUM PHOSPHATE INJ 15 MMOL in SODIUM CHLORIDE 0.9% INJ 100 ML IV PRN (01:15)
[2017-09-10] MEDS ORDERED: POTASSIUM CHLOR 40 MEQ PREMIX 100 ML IV PRN ×2 (01:15)
[2017-09-10] MEDS: ONDANSETRON HCL 4 MG/2 ML VIAL IV PUSH PRN ×2 (01:30→05:24)
--- NOTE | 2017-09-10 01:32 | RADRPT ---
EXAM DATE/TIME: 09/10/2017 01:20 [facility] COMPARISON: CHEST SINGLE AP, September 09, 2017, 23:03. INDICATIONS : Right sided central line placement. MEDICAL HISTORY : Hypertension. Diabetes mellitus type II. SURGICAL HISTORY : CABG. Hysterectomy. ENCOUNTER: Subsequent ACUITY: 1 day PAIN SCORE: 0/10 LOCATION: Right chest FINDINGS: Right-sided central line in place. No pneumothorax. Lung faustin remain clear. Heart size is stable. T here are no pleural effusions. CONCLUSION: Right-sided central line in place. No pneumothorax. Prateek Acevedo MD on September 10, 2017 at 1:29 Board Certified Radiologist. This report was verified electronically.
[2017-09-10 01:33] LABS: BANDS 7 % (0-6); BASOPHILS 2 % (0-2); LYMPHOCYTES 18 % (9-44); METAMYELOCYTES 1 % (0-1); MONOCYTES 1 % (0-8); MYELOCYTES 2 % (0-0); NEUTROPHIL # MANUAL DIFF 11.9 TH/MM3 (1.8-7.7); POLYS (SEG NEUTROPHILS) 67 % (16-70)
[2017-09-10 01:36] LABS: ACANTHOCYTES OCC (NORMAL)
--- NOTE | 2017-09-10 02:22 | PD.PROCEDR ---
Procedure Note Procedure Central line placement A time-out was completed verifying correct patient, procedure, site, positioning , and special equipment if applicable. The patient was placed in a dependent position appropriate for central line placement based on the vein to be cannulated. The patients right neck was prepped and draped in sterile fashion. 1% Lidocaine was used to anesthetize the surrounding skin area. A triple lumen 9 -[place] Cordis catheter was introduced into the the internal jugular vein using the Seldinger technique and under ultrasound guidance. The catheter was threaded smoothly over the guide wire and appropriate blood return was obtained. Each lumen of the catheter was evacuated of air and flushed with sterile saline. The catheter was then sutured in place to the skin and a sterile dressing applied. Perfusion to the extremity distal to the point of catheter insertion was checked and found to be adequate. Estimated Blood Loss: 1ml The patient tolerated the procedure well and there were no complications. Shane Whiteside MD Sep 10, 2017 02:22
[2017-09-10 02:58] LABS: CALCIUM-PROTEIN CORRECTED 8.9 MG/DL (8.5-10.1)
[2017-09-10] MEDS: CHLORHEXIDINE GLUCONATE 2 % 1 PACK (2 CLOTHS) TOP SCH (04:00)
[2017-09-10] MEDS ORDERED: CHLORHEXIDINE GLUCONATE 2 % 1 PACK (2 CLOTHS) TOP SCH (04:00)
[2017-09-10] MEDS: SODIUM CHLOR 0.9% 1000 ML INJ 1,000 ML IV SCH ×6 (04:15→21:10)
[2017-09-10] MEDS: INSULIN REGULAR (IV INFUSION) 100 UNITS in SODIUM CHLORIDE 0.9% INJ 99 ML IV PRN ×2 (04:41→13:05)
[2017-09-10 05:05] LABS: AUTOMATED NEUTROPHIL # 16.4 TH/MM3 (1.8-7.7); BASOPHIL % 0.1 % (0.0-2.0); EOSINOPHIL % 0.1 % (0.0-4.0); HEMATOCRIT 23.9 % (35.0-46.0); LYMPH % 6.6 % (9.0-44.0); LYMPHOCYTE # 1.2 TH/MM3 (1.0-4.8); MEAN CELL VOLUME 92.4 FL (80.0-100.0); MEAN CORPUSCULAR HEMOGLOBIN 31.1 PG (27.0-34.0); MEAN CORPUSCULAR HGB CONC 33.7 % (32.0-36.0); MEAN PLATELET VOLUME 8.2 FL (7.0-11.0); MONO % 5.4 % (0.0-8.0); NEUT % 87.8 % (16.0-70.0); PLATELET COUNT 162 TH/MM3 (150-450); RED BLOOD COUNT 2.59 MIL/MM3 (4.00-5.30); RED CELL DISTRIBUTION WIDTH 15.7 % (11.6-17.2); WHITE BLOOD COUNT 18.7 TH/MM3 (4.0-11.0)
[2017-09-10 05:22] LABS: MAGNESIUM 0.6 MG/DL (1.5-2.5); PHOSPHORUS 0.9 MG/DL (2.5-4.9)
[2017-09-10] MEDS: MORPHINE SULFATE 4 MG/ML INJ IV PUSH PRN ×2 (05:23→21:47)
[2017-09-10 05:30] LABS: ALBUMIN 1.8 GM/DL (3.4-5.0); BICARBONATE 17.3 MEQ/L (21.0-32.0); CALCIUM 6.5 MG/DL (8.5-10.1); CALCIUM-PROTEIN CORRECTED 8.1 MG/DL (8.5-10.1); CREATININE 1.01 MG/DL (0.50-1.00); MAGNESIUM 1.6 MG/DL (1.5-2.5); PHOSPHORUS 2.1 MG/DL (2.5-4.9); TOTAL BILIRUBIN ADULT 1.1 MG/DL (0.2-1.0); TOTAL PROTEIN 4.1 GM/DL (6.4-8.2)
[2017-09-10 05:51] LABS: INTERNATIONAL NORMALIZED RATIO 1.3 RATIO; PROTHROMBIN TIME - PATIENT 13.6 SEC (9.8-11.6)
[2017-09-10] MEDS ORDERED: SODIUM CHLOR 0.9% 1000 ML INJ 1,000 ML IV ONE ×2 (07:00)
[2017-09-10] MEDS: DOCUSATE SODIUM 50 MG/SENNA 8.6 MG TAB PO SCH ×2 (07:50→21:00)
[2017-09-10] MEDS: SODIUM CHLORIDE 0.9% FLUSH 10 ML FLUSH IV FLUSH SCH ×2 (07:51→21:00)
[2017-09-10] MEDS ORDERED: INSULIN NovoLIN REGULAR SUPPLEMENTAL SCALE SQ SCH (08:00)
[2017-09-10 08:16] LABS: ACANTHOCYTES 1+ (NORMAL); BANDS 11 % (0-6); LYMPHOCYTES 6 % (9-44); METAMYELOCYTES 2 % (0-1); MONOCYTES 4 % (0-8); MYELOCYTES 2 % (0-0); NEUTROPHIL # MANUAL DIFF 16.8 TH/MM3 (1.8-7.7); POLYS (SEG NEUTROPHILS) 75 % (16-70)
[2017-09-10] MEDS: PHYTONADIONE 10 MG/ML VIAL SQ SCH (08:46)
[2017-09-10] MEDS ORDERED: ALLOPURINOL 100 MG TAB PO SCH (09:00)
--- NOTE | 2017-09-10 09:34 | PD.CONS ---
HPI History of Present Illness This is a 56 year old F who presented to the emergency department yesterday via ambulance for weakness and near syncopal episode. Pt reports black, tarry stools that began yesterday morning, she has had approx 12 episodes since then. Denies acid reflux, abdominal pain, nausea, vomiting, unintentional weight loss. Pt currently on Coumadin since June of last year for history of DVT and porcine valve. Pt reports having her INR checked weekly and states last week INR was normal, no recent adjustments to medication. Also takes daily baby ASA. Denies NSAID use, ETOH, smoking, illicit drug use. 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 Has had a colonoscopy approx 4 years ago in [place], reports normal exam. Denies ever having EGD. H/H in the ER was 6.5/21.7 and INR 10. Vit K administered, INR now 1.3. 4 U of PRBCs have been ordered, 2 administered. 4 U of FFP have also been ordered, one currently transfusing. Of note, pt was also found to have a blood sugar over 400 on admission. Reports history of prediabetes controlled with diet alone. She is now on an insulin gtt. (Matilde Wagner) PFSH Past Medical History Prediabetes- controlled with diet DVT HTN Hyperlipidemia Breast cancer Cervical cancer Depression CVA Past Surgical History Cholecystectomy Hysterectomy Lumpectomy Cervical mass removed Valve replacement (Matilde Wagner) Coded Allergies: Sulfa (Sulfonamide Antibiotics) (Unverified Allergy, Unknown, 09/09/17) Social History Denies ETOH Denies nicotine Denies illicit drug use (Matilde Wagner) Review of Systems Gastrointestinal: COMPLAINS OF: Black stools, Diarrhea, DENIES: Abdominal pain , Bloody stools, Constipation, Nausea, Vomiting, Difficulty Swallowing, Odynophagia, Swelling of Abdomen, Heartburn, Hematemesis (Matilde Wagner) GI Exam Vitals I&O Vital Signs Date Time Temp Pulse Resp B/P (MAP) Pulse Ox O2 Delivery O2 Flow Rate FiO2 09/10/17 08:00 98.6 120 27 96/50 (65) 100 09/10/17 08:00 137 09/10/17 07:00 100 Room Air 09/10/17 06:00 129 09/10/17 05:40 122 1/13/18 05:01 98.5 121 27 116/58 99 09/10/17 04:15 98.5 128 21 129/61 (83) 100 09/10/17 03:05 98.1 122 22 108/64 100 09/10/17 02:25 108 18 91/58 100 09/10/17 02:11 97.9 106 19 91/54 100 09/10/17 01:35 97.8 113 16 91/57 98 09/10/17 01:07 97.8 108 23 91/56 98 09/10/17 00:00 98 09/09/17 22:43 114 16 131/85 (100) 100 I/O 09/09/17 09/09/17 09/09/17 09/10/17 09/10/17 09/10/17 07:00 15:00 23:00 07:00 15:00 23:00 Intake Total 3486 ml Output Total 300 ml Balance 3186 ml Intake IV Total 2361 ml Packed Cells 800 ml Blood Product IV Normal Saline Flush 325 ml Output Urine Total 300 ml # Bowel Movements 2 Imaging Last Impressions Chest X-Ray 09/10/17 0000 Signed Impressions: Service Date/Time: Sunday, September 10, 2017 01:20 - CONCLUSION: Right- sided central line in place. No pneumothorax. Prateek Acevedo MD Laboratory Test 09/09/17 23:00 09/09/17 23:35 09/10/17 00:15 09/10/17 04:45 White Blood Count 15.5 TH/MM3 18.7 TH/MM3 Red Blood Count 2.15 MIL/MM3 2.59 MIL/MM3 Hemoglobin 6.5 GM/DL 8.0 GM/DL Hematocrit 21.7 % 23.9 % Mean Corpuscular Volume 101.0 FL 92.4 FL Mean Corpuscular Hemoglobin 30.2 PG 31.1 PG Mean Corpuscular Hemoglobin Concent 29.9 % 33.7 % Red Cell Distribution Width 16.4 % 15.7 % Platelet Count 314 TH/MM3 162 TH/MM3 Mean Platelet Volume 8.6 FL 8.2 FL Neutrophils (%) (Auto) 68.0 % 87.8 % Lymphocytes (%) (Auto) 26.1 % 6.6 % Monocytes (%) (Auto) 3.7 % 5.4 % Eosinophils (%) (Auto) 1.7 % 0.1 % Basophils (%) (Auto) 0.5 % 0.1 % Neutrophils # (Auto) 10.6 TH/MM3 16.4 TH/MM3 Lymphocytes # (Auto) 4.1 TH/MM3 1.2 TH/MM3 Monocytes # (Auto) 0.6 TH/MM3 1.0 TH/MM3 Eosinophils # (Auto) 0.3 TH/MM3 0.0 TH/MM3 Basophils # (Auto) 0.1 TH/MM3 0.0 TH/MM3 CBC Comment AUTO DIFF AUTO DIFF Differential Total Cells Counted 100 100 Neutrophils % (Manual) 67 % 75 % Band Neutrophils % 7 % 11 % Lymphocytes % 18 % 6 % Monocytes % 1 % 4 % Eosinophils % 2 % Basophils % 2 % Neutrophils # (Manual) 11.9 TH/MM3 16.8 TH/MM3 Metamyelocytes 1 % 2 % Myelocytes 2 % 2 % Differential Comment FINAL DIFF MANUAL FINAL DIFF MANUAL Dohle Bodies Platelet Estimate NORMAL NORMAL Platelet Morphology Comment NORMAL NORMAL Basophilic Stippling FAINT Acanthocytes OCC 1+ Blood Urea Nitrogen 60 MG/DL 59 MG/DL Creatinine 1.54 MG/DL 1.01 MG/DL Random Glucose 557 MG/DL 400 MG/DL Total Protein 4.7 GM/DL 4.1 GM/DL Albumin 2.0 GM/DL 1.8 GM/DL Calcium Level 7.5 MG/DL 6.5 MG/DL Alkaline Phosphatase 121 U/L 97 U/L Aspartate Amino Transf (AST/SGOT) 14 U/L 22 U/L Alanine Aminotransferase (ALT/SGPT) 33 U/L 34 U/L Total Bilirubin 0.1 MG/DL 1.1 MG/DL Sodium Level 139 MEQ/L 146 MEQ/L Potassium Level 4.3 MEQ/L 5.1 MEQ/L Chloride Level 107 MEQ/L 119 MEQ/L Carbon Dioxide Level 13.2 MEQ/L 17.3 MEQ/L Anion Gap 19 MEQ/L 10 MEQ/L Estimat Glomerular Filtration Rate 35 ML/MIN 56 ML/MIN Protein Corrected Calcium 8.9 MG/DL 8.1 MG/DL Phosphorus Level 0.9 MG/DL 2.1 MG/DL Magnesium Level 0.6 MG/DL 1.6 MG/DL Ammonia 17 MCMOL/L Lipase 313 U/L B-Hydroxybutyrate 0.19 MMOL/L Prothrombin Time 99.5 SEC 13.6 SEC Prothromb Time International Ratio 10.0 RATIO 1.3 RATIO Activated Partial Thromboplast Time 38.6 SEC 22.7 SEC Venous Blood pH 7.27 Fibrinogen 201 mg/dL Serum Osmolality 339 MOSM/KG Physical Examination HEENT: Normocephalic; atraumatic CHEST: Even/unlabored CARDIAC: RRR ABDOMEN: Round, soft, nontender, bowel sounds active EXTREMITIES: No clubbing, cyanosis, or edema. SKIN: No rash, diaphoretic ESCROW CLERK: No focal deficits; alert and oriented times three. (Matilde Wagner) Assessment and Plan Plan Assessment: - Melena- Started yesterday approx 12 episodes, last one at 8 am this morning. H/H 6.5/21.7 on admission. 4 U PRBCs ordered, 2 administered. INR 10 on admission, now 1.3 S/P Vit K. 4 U FFP ordered, 1 currently transfusing. Pt on Coumadin for history of DVT and valve replacement, no recent adjustments to medication. Denies history of GIB, NSAIDs, ETOH. Has never had EGD. Last colonoscopy approx 4 years ago in [facility] [place] normal exam - Random BGL over 400- pt reports history of prediabetes controlled with diet alone. Now on insulin gtt. Plan: - EGD today - Obtain consent - Keep pt NPO - Continue Protonix gtt - Monitor labs - Transfuse as needed - Supportive care - Further recommendations to follow based on results of above Pt has been seen and examined by myself and Dr. Erazo and this note is written on her behalf (Matilde Wagner) Physician Comments seen, examined agree with above (Brenda Erazo MD) Matilde Wagner Sep 10, 2017 09:34 Brenda Erazo MD Sep 10, 2017 18:12
[2017-09-10] MEDS: LORazepam 0.5 MG TAB PO PRN (10:02)
[2017-09-10] MEDS: PANTOPRAZOLE SODIUM 40 MG VIAL IV PUSH SCH ×2 (10:35)
[2017-09-10] MEDS ORDERED: METOPROLOL TARTRATE 5 MG/5 ML VIAL IV PUSH ONE ×2 (12:00→19:30)
[2017-09-10] MEDS ORDERED: PROPOFOL 200 MG/20 ML AMP IV ONE (12:00)
[2017-09-10] MEDS ORDERED: ROCURONIUM INJ 50 MG/5 ML SYRINGE IV PUSH ONE (12:00)
[2017-09-10] MEDS ORDERED: ONDANSETRON HCL 4 MG/2 ML VIAL IV PUSH ONE (12:00)
[2017-09-10] MEDS ORDERED: LIDOCAINE HCL 1% PF 5 ML SYRINGE OTHER ONE (12:00)
--- NOTE | 2017-09-10 12:08 | HHI.CCPN ---
Subjective Remarks/Hospital Course 56-year-old female presents from home by EMS transport for evaluation of generalized weakness diaphoresis and near syncope. Patient states she noted since yesterday black tarry frequent diarrhea. Patient denies any nausea or vomiting or abdominal pain. Patient denies recent antibiotic use. 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 She was also started on Coumadin at that time for DVT. In the emergency department her INR was found to be 10 and a hemoglobin 6.5. 09/10: INR corrected after Kcentra and FFP. Some residual lower GI blood - black , likely gastric source. Objective Vital Signs Date Time Temp Pulse Resp B/P (MAP) Pulse Ox O2 Delivery O2 Flow Rate FiO2 09/10/17 10:00 119 09/10/17 09:48 98.7 19 110/54 100 09/10/17 07:00 Room Air Intake and Output 09/10/17 09/10/17 09/11/17 08:00 16:00 00:00 Intake Total 3486 ml 1635 ml Output Total 300 ml Balance 3186 ml 1635 ml Result Diagram: 09/10/17 0445 09/10/17 0445 Other Results Laboratory Tests Test 09/10/17 00:15 Venous Blood pH 7.27 (7.360-7.400) Objective Remarks GENERAL: Well-nourished, well-developed patient. Remains extremely pale SKIN: Warm and dry. HEAD: Normocephalic. EYES: No scleral icterus. No injection or drainage. NECK: Supple, trachea midline. Airway widely patent. CARDIOVASCULAR: Regular rate and rhythm without murmurs, gallops, or rubs. Neck veins flat. RESPIRATORY: Breath sounds equal bilaterally. No accessory muscle use. Clear. GASTROINTESTINAL: Abdomen soft, non-tender, nondistended. Active BS, no guarding. MUSCULOSKELETAL: No cyanosis, or edema. NEURO EXAM: O X 3, alert, cooperative. Moves 4 limbs to command. A/P Assessment and Plan Melena with GI bleed - Protonix IV twice a day - Gastroenterology consultation - Reverse coagulopathy - Series of H&H - Kcentra - Vitamin K - FFP's - For endoscopy, upper today. Anemia - Due to blood loss - Transfuse to keep hemoglobin above 7 - H&H every 6 hours Diabetes/DKA - DKA protocol Seizure disorder - Continue Topamax when okay by mouth Hypotension - Hold antihypertensive medications due to borderline hypertension - Resume when indicated History of DVT - Hold Coumadin due to acute GI bleed - Further per GI DVT GI prophylaxis - Teds SCDs - No pharmacological DVT prophylaxis due to acute GI bleed - Protonix gtt Overall impression: Patient remains critically ill with severe GI bleed complicated by DKA and large osmotic diuresis. Resuscitation continues, remains hypovolemic. Coagulopathy improved. Critical care 42 mins Emeka Hernandez MD Sep 10, 2017 12:08
[2017-09-10 13:16] LABS: HEMATOCRIT 13.5 % (35.0-46.0); HEMOGLOBIN 4.8 GM/DL (11.6-15.3)
[2017-09-10 13:22] LABS: PROTHROMBIN TIME - PATIENT 13.9 SEC (9.8-11.6)
[2017-09-10 13:23] LABS: INTERNATIONAL NORMALIZED RATIO 1.4 RATIO
[2017-09-10 13:44] LABS: CALCIUM 6.6 MG/DL (8.5-10.1); CREATININE 0.98 MG/DL (0.50-1.00); MAGNESIUM 1.4 MG/DL (1.5-2.5); PHOSPHORUS 1.1 MG/DL (2.5-4.9)
[2017-09-10 13:45] LABS: BICARBONATE 17.9 MEQ/L (21.0-32.0)
[2017-09-10] MEDS ORDERED: SODIUM BICARBONATE 8.4% INJ 50 MEQ/50 ML SYR IV PUSH ONE (14:00)
[2017-09-10 14:10] LABS: CALCIUM-PROTEIN CORRECTED 8.1 MG/DL (8.5-10.1); TOTAL PROTEIN 4.3 GM/DL (6.4-8.2)
[2017-09-10] MEDS ORDERED: MAGNESIUM SULFATE 2 GM/NS 100 ML IV ONE ×2 (14:30)
[2017-09-10] MEDS ORDERED: SODIUM PHOSPHATE INJ 15 MMOL in SODIUM CHLORIDE 0.9% INJ 100 ML IV ONE (14:30)
--- NOTE | 2017-09-10 14:38 | EKG ---
Date Performed: 09/09/2017 Time Performed: 22:53:49 PTAGE: 56 years EKG: SINUS TACHYCARDIA ST DEVIATION AND MODERATE T-WAVE ABNORMALITY, CONSIDER ANTEROLATERAL ISCH EMIA ST DEVIATION AND MODERATE T-WAVE ABNORMALITY, CONSIDER INFERIOR ISCHEMIA ABNORMAL ECG PREVIOUS TRACING : 04/28/2017 23.53 Compared to prior tracing, the rhythm is faster, and the ST -T wave changes are more diffused and prominent. Clinical correlation is recommended. DOCTOR: Michael Dominguez Interpretating Date/Time 09/10/2017 14:37:42
[2017-09-10] MEDS ORDERED: CALCIUM GLUCONATE INJ 2 GM in SODIUM CHLORIDE 0.9% INJ 100 ML IV ONE (16:00)
[2017-09-10] MEDS ORDERED: SUGAMMADEX SODIUM 200 MG/2 ML VIAL IV PUSH ONE (16:11)
--- NOTE | 2017-09-10 16:15 | GIPROC ---
[facility] [address] [facility]. [facility], [address] EGD PROCEDURE REPORT EXAM DATE: 09/10/2017 PATIENT NAME: Marla Grayson MR #: [id number] BIRTHDATE: 1960 ATTENDING: Brenda Erazo MD ORDER #: [id number] MANAGER LEAN: Valerie Ro and Ada Castellano STATUS: inpatient INDICATIONS: The patient is a 56 yr old female here for an EGD due to gi bleeding anemia PROCEDURE PERFORMED: EGD, diagnostic MEDICATIONS: None and Per Anesthesia. TOPICAL ANESTHETIC: none CONSENT: The patient understands the risks and benefits of the procedure and understands that these risks include, but are not limited to: sedation, allergic reaction, infection, perforation and/or bleeding. Alternative means of evaluation and treatment include, among others: physical exam, x-rays, and/or surgical intervention. The patient elects to proceed with this endoscopic procedure. medical equipment was checked for proper function. Hand hygiene and appropriate measures for infection prevention was taken. After the risks, benefits and alternatives of the procedure were thoroughly explained, Informed consent was verified, confirmed and timeout was successfully executed by the treatment team. The patient was anesthetized with topical anesthesia and the Pentax EG-[id number] endoscope was introduced through the mouth and advanced to the second portion of the duodenum. Retroflexed views revealed a hiatal hernia The gastroscope was then slowly withdrawn and removed. 625 cc of coffee ground aspirate removed no active bleeding NGT inserted gastritis. ADVERSE EVENTS: There were no complications. IMPRESSIONS: 1. 625 cc of coffee ground aspirate removed no active bleeding NGT inserted 2. Retroflexed views revealed a hiatal hernia RECOMMENDATIONS: 1. Anti-reflux regimen 2. Ppi CT abdomen/pelvis to r/o intraabdominal bleeding if negative consider colonoscopy PATIENT CONDITION: stable DISPOSITION: Inpatient REPEAT EXAM: Return 1 month EGD Brenda Erazo MD eSigned: Brenda Erazo MD 09/10/2017 4:14 PM cc: PATIENT NAME: Marla Grayson MR#: [id number]
--- NOTE | 2017-09-10 17:04 | RADRPT ---
EXAM DATE/TIME: 09/10/2017 16:44 [place] COMPARISON: No previous studies available for comparison. INDICATIONS : Diffuse abdomen pain, evaluate for intraabdominal hemorrhage. ORAL CONTRAST: No oral contrast ingested. RADIATION DOSE: 17.00 CTDIvol (mGy) ; Patient body habitus MEDICAL HISTORY : Carcinoma, breast. Stroke diabetes SURGICAL HISTORY : Hysterectomy. Cholecystectomy. ENCOUNTER: Initial ACUITY: 1 day PAIN SCALE: Non-responsive LOCATION: Bilateral abdomen TECHNIQUE: Volumetric scanning of the abdomen and pelvis was performed. Using automated exposure control and ad justment of the mA and/or kV according to patient size, radiation dose was kept as low as reasonably achievable to obtain optimal diagnostic quality images. DICOM format image data is available electro nically for review and comparison. FINDINGS: LOWER LUNGS: There is small bilateral pleural effusions. There is a small pericardial effusion. LIVER: Homogeneous density without lesion. There is no dilation of the biliary tree. Status post cholecyste ctomy. SPLEEN: Normal size without lesion. PANCREAS: Within normal limits. KIDNEYS: Normal in size and shape. There is no mass or hydronephrosis. There is a single 1 mm nonobstructing left renal calculus. ADRENAL GLANDS: There is a 2 cm low-attenuation left adrenal adenoma. VASCULAR: There is no aortic aneurysm. BOWEL/MESENTERY: Moderate size retrocardiac hiatal hernia. No oral contrast was given limiting the sensitivity. [place] stric tube is seen coursing through the distal esophagus and into the stomach. The tip is in the dist al stomach or proximal duodenum. ABDOMINAL WALL: Within normal limits. RETROPERITONEUM: There is no lymphadenopathy. BLADDER: A Norris catheter is present. There is a small air-fluid level. REPRODUCTIVE: Within normal limits. INGUINAL: There is no lymphadenopathy. There are fat-containing inguinal hernias. MUSCULOSKELETAL: Within normal limits for patient age. CONCLUSION: 1. Moderate size retrocardiac hiatal hernia. 2. Nonobstructive bowel gas pattern. 3. Small pleural effusions and small pericardial fluid noted. 4. Single 1 mm nonobstructing left renal calculus. Nicola Martinez MD on September 10, 2017 at 16:57 Board Certified Radiologist. This report was verified electronically.
[2017-09-10 18:10] LABS: HEMATOCRIT 31.8 % (35.0-46.0); HEMOGLOBIN 11.6 GM/DL (11.6-15.3)
[2017-09-10 18:20] LABS: INTERNATIONAL NORMALIZED RATIO 1.2 RATIO; PROTHROMBIN TIME - PATIENT 11.8 SEC (9.8-11.6)
[2017-09-10 18:46] LABS: BICARBONATE 21.5 MEQ/L (21.0-32.0); CALCIUM 7.6 MG/DL (8.5-10.1); CREATININE 0.82 MG/DL (0.50-1.00); MAGNESIUM 2.2 MG/DL (1.5-2.5); PHOSPHORUS 2.7 MG/DL (2.5-4.9)
[2017-09-10] MEDS: TOPIRAMATE 100 MG TAB PO SCH (21:33)
[2017-09-10] MEDS: traZODone HCL 50 MG TAB PO SCH (21:33)
[2017-09-10 22:31] LABS: HEMATOCRIT 30.3 % (35.0-46.0); HEMOGLOBIN 10.6 GM/DL (11.6-15.3); MEAN CELL VOLUME 82.8 FL (80.0-100.0); MEAN CORPUSCULAR HEMOGLOBIN 29.1 PG (27.0-34.0); MEAN CORPUSCULAR HGB CONC 35.2 % (32.0-36.0); MEAN PLATELET VOLUME 8.7 FL (7.0-11.0); PLATELET COUNT 108 TH/MM3 (150-450); RED BLOOD COUNT 3.65 MIL/MM3 (4.00-5.30); RED CELL DISTRIBUTION WIDTH 14.9 % (11.6-17.2); WHITE BLOOD COUNT 16.5 TH/MM3 (4.0-11.0)
[2017-09-11] VITALS (15 sets, daily range): BP systolic 145–168; BP diastolic 70–81; PULSE 77–93; RESP 11–22; TEMP 98.5–99.5; O2SAT 95–100
[2017-09-11] MEDS: PANTOPRAZOLE SODIUM 40 MG VIAL IV PUSH SCH ×2 (00:07→11:26)
[2017-09-11] MEDS: SODIUM CHLOR 0.9% 1000 ML INJ 1,000 ML IV SCH ×4 (01:10→10:10)
[2017-09-11 02:21] LABS: HEMATOCRIT 28.7 % (35.0-46.0); HEMOGLOBIN 10.2 GM/DL (11.6-15.3)
[2017-09-11 02:26] LABS: INTERNATIONAL NORMALIZED RATIO 1.2 RATIO; PROTHROMBIN TIME - PATIENT 12.4 SEC (9.8-11.6)
[2017-09-11 02:58] LABS: BICARBONATE 22.9 MEQ/L (21.0-32.0); CALCIUM 7.3 MG/DL (8.5-10.1); CREATININE 0.83 MG/DL (0.50-1.00); MAGNESIUM 2.1 MG/DL (1.5-2.5); PHOSPHORUS 2.1 MG/DL (2.5-4.9)
[2017-09-11] MEDS: DEXT 5%-NACL 0.9% 1000 ML INJ 1,000 ML IV SCH ×2 (03:12→07:10)
[2017-09-11 03:13] LABS: CALCIUM-PROTEIN CORRECTED 8.7 MG/DL (8.5-10.1); TOTAL PROTEIN 4.6 GM/DL (6.4-8.2)
[2017-09-11] MEDS: CHLORHEXIDINE GLUCONATE 2 % 1 PACK (2 CLOTHS) TOP SCH (04:00)
[2017-09-11] MEDS: LORazepam 0.5 MG TAB PO PRN ×2 (04:39→15:37)
[2017-09-11] MEDS: DOCUSATE SODIUM 50 MG/SENNA 8.6 MG TAB PO SCH ×2 (07:13→21:00)
[2017-09-11] MEDS: PHYTONADIONE 10 MG/ML VIAL SQ SCH (08:26)
[2017-09-11] MEDS: SODIUM CHLORIDE 0.9% FLUSH 10 ML FLUSH IV FLUSH SCH ×2 (08:26→21:16)
--- NOTE | 2017-09-11 08:30 | HHI.GIFU ---
Subjective Remarks Pt resting in bed. NGT to LIWS. 160cc of coffee ground emesis in suction canister, however, the secretions coming out now are more yellow in color. Pt reports multiple black BMs throughout the night, which she states have eased up. Last BM at 4am this morning. (Matilde Wagner) Objective Vitals I&O Vital Signs Date Time Temp Pulse Resp B/P (MAP) Pulse Ox O2 Delivery O2 Flow Rate FiO2 09/11/17 07:44 99 21 09/11/17 07:00 98 Room Air 09/11/17 06:00 84 09/11/17 04:00 85 09/11/17 04:00 98.5 85 16 151/76 (101) 99 09/11/17 02:00 93 09/11/17 01:43 98 21 09/11/17 00:00 90 09/11/17 00:00 99.5 90 16 145/70 (95) 96 09/10/17 22:00 94 09/10/17 20:00 99.3 88 18 156/83 (107) 98 09/10/17 20:00 87 09/10/17 19:00 100 Room Air 09/10/17 18:00 148 09/10/17 15:05 99.0 105 25 144/67 100 09/10/17 14:08 99.0 111 26 112/56 100 09/10/17 14:00 118 09/10/17 13:48 99.1 133 16 112/56 100 09/10/17 12:00 121 09/10/17 12:00 98.8 121 19 119/51 (73) 100 09/10/17 10:00 119 09/10/17 09:48 98.7 137 19 110/54 100 09/10/17 09:33 98.6 121 23 94/46 100 I/O 09/10/17 09/10/17 09/10/17 09/11/17 09/11/17 09/11/17 07:00 15:00 23:00 07:00 15:00 23:00 Intake Total 3953 ml 2035 ml 2000 ml 1000 ml Output Total 300 ml 2000 ml 1425 ml Balance 3653 ml 2035 ml 0 ml -425 ml Intake IV Total 2361 ml 1415 ml 200 ml 1000 ml Packed Cells 800 ml 400 ml 1550 ml FFP 217 ml 220 ml 250 ml Blood Product IV Normal Saline Flush 575 ml Output Urine Total 300 ml 2000 ml 1425 ml # Bowel Movements 2 7 2 Laboratory Laboratory Tests Test 09/10/17 11:50 09/10/17 13:00 09/10/17 17:36 09/10/17 20:50 Blood Urea Nitrogen 64 55 Creatinine 0.98 0.82 Random Glucose 191 172 Total Protein 4.3 Calcium Level 6.6 7.6 Phosphorus Level 1.1 2.7 Magnesium Level 1.4 2.2 Sodium Level 152 154 Potassium Level 4.1 3.7 Chloride Level 126 123 Carbon Dioxide Level 17.9 21.5 Anion Gap 8 10 Estimat Glomerular Filtration Rate 58 72 Protein Corrected Calcium 8.1 B-Hydroxybutyrate 0.14 Hemoglobin 4.8 11.6 Hematocrit 13.5 31.8 Prothrombin Time 13.9 11.8 Prothromb Time International Ratio 1.4 1.2 Total Creatine Kinase 110 Creatine Kinase MB 4.2 Troponin I 0.10 Test 09/10/17 22:10 09/11/17 02:00 White Blood Count 16.5 Red Blood Count 3.65 Hemoglobin 10.6 10.2 Hematocrit 30.3 28.7 Mean Corpuscular Volume 82.8 Mean Corpuscular Hemoglobin 29.1 Mean Corpuscular Hemoglobin Concent 35.2 Red Cell Distribution Width 14.9 Platelet Count 108 Mean Platelet Volume 8.7 Prothrombin Time 12.4 Prothromb Time International Ratio 1.2 Blood Urea Nitrogen 40 Creatinine 0.83 Random Glucose 191 Total Protein 4.6 Calcium Level 7.3 Phosphorus Level 2.1 Magnesium Level 2.1 Sodium Level 156 Potassium Level 3.5 Chloride Level 126 Carbon Dioxide Level 22.9 Anion Gap 7 Estimat Glomerular Filtration Rate 71 Protein Corrected Calcium 8.7 B-Hydroxybutyrate 0.08 Imaging Last Impressions Chest X-Ray 09/10/17 0000 Signed Impressions: Service Date/Time: Sunday, September 10, 2017 01:20 - CONCLUSION: Right- sided central line in place. No pneumothorax. Prateek Acevedo MD Abdomen/Pelvis CT 09/10/17 0000 Signed Impressions: Service Date/Time: Sunday, September 10, 2017 16:44 - CONCLUSION: 1. Moderate size retrocardiac hiatal hernia. 2. Nonobstructive bowel gas pattern. 3. Small pleural effusions and small pericardial fluid noted. 4. Single 1 mm nonobstructing left renal calculus. Nicola Martinez MD Physical Exam HEENT: Normocephalic; atraumatic CHEST: Even/unlabored CARDIAC: RRR ABDOMEN: Obese, soft, nontender, bowel sounds active. NGT R nostril- 160cc of coffee ground emesis in suction canister, secretions are now more yellow EXTREMITIES: No clubbing, cyanosis, or edema. SKIN: Normal; no rash; no jaundice. ASSISTANT TO THE VICE PRESIDENT: No focal deficits; alert and oriented times three. (Matilde Wagner) Assessment and Plan Plan Assessment: - Melena- Started yesterday approx 12 episodes, last one at 8 am this morning. H/H 6.5/21.7 on admission. 4 U PRBCs ordered, 2 administered. INR 10 on admission, now 1.3 S/P Vit K. 4 U FFP ordered, 1 currently transfusing. Pt on Coumadin for history of DVT and valve replacement, no recent adjustments to medication. Denies history of GIB, NSAIDs, ETOH. Has never had EGD. Last colonoscopy approx 4 years ago in [place], states normal exam - Random BGL over 400- pt reports history of prediabetes controlled with diet alone. Now on insulin gtt. (09/11) S/P EGD yesterday- 625 cc of coffee ground aspirate removed no active bleeding. NGT inserted. Hiatal hernia. CT abdomen and pelvis W/O IV contrast (09/10) -->Moderate size retrocardiac hiatal hernia. Nonobstructive bowel gas pattern. Small pleural effusions and small pericardial fluid noted. Single 1mm nonobstructing left renal calculus. NGT to LIWS- with 160cc of coffee ground emesis- current secretions turning more yellow. H/H [id number]/28.7 S/P 5 U PRBCs. INR 1.2 S/P 2 U FFP and Vit K. Pt reports multiple black BMs throughout the night which she states have eased up , last BM at 4am. Plan: - Colonoscopy tomorrow - Obtain consents - Famly prep - H&H every 6 hours - Transfuse as needed - Monitor NGT and stool output - Stool studies pending - Supportive care - Further recommendations to follow based on results of above Pt has been seen and examined by myself and Dr. Erazo and this note is written on her behalf (Matilde Wagner) Matilde Wagner Sep 11, 2017 08:30 Brenda Erazo MD Sep 18, 2017 11:47
[2017-09-11 09:14] LABS: HEMOGLOBIN 9.9 GM/DL (11.6-15.3)
[2017-09-11] MEDS: MORPHINE SULFATE 4 MG/ML INJ IV PUSH PRN ×3 (10:10→21:17)
--- NOTE | 2017-09-11 11:25 | HHI.CCPN ---
Subjective Remarks/Hospital Course 56-year-old female presents from home by EMS transport for evaluation of generalized weakness diaphoresis and near syncope. Patient states she noted since yesterday black tarry frequent diarrhea. Patient denies any nausea or vomiting or abdominal pain. Patient denies recent antibiotic use. 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 She was also started on Coumadin at that time for DVT. In the emergency department her INR was found to be 10 and a hemoglobin 6.5. 09/10: INR corrected after Kcentra and FFP. Some residual lower GI blood - black , likely gastric source. 09/11: Total transfusion 5 unitrs rbcs. Stable hemodynamics now. DKA resolved, will convert to SSI q4h. Being prepped for colonoscopy. Objective Vital Signs Date Time Temp Pulse Resp B/P (MAP) Pulse Ox O2 Delivery O2 Flow Rate FiO2 09/11/17 10:00 77 09/11/17 08:00 98.6 18 147/78 (101) 98 09/11/17 07:44 21 09/11/17 07:00 Room Air Intake and Output 09/11/17 09/11/17 09/12/17 08:00 16:00 00:00 Intake Total 1000 ml Output Total 1425 ml Balance -425 ml Result Diagram: 09/11/17 0831 09/11/17 0200 Objective Remarks GENERAL: Well-nourished, well-developed patient. Remains pale SKIN: Warm and dry. HEAD: Normocephalic. EYES: No scleral icterus. No injection or drainage. NECK: Supple, trachea midline. Airway widely patent. CARDIOVASCULAR: Regular rate and rhythm without murmurs, gallops, or rubs. No JVD. RESPIRATORY: Breath sounds equal bilaterally. No accessory muscle use. Clear. GASTROINTESTINAL: Abdomen soft, non-tender, nondistended. Active BS, no guarding. MUSCULOSKELETAL: No cyanosis, or edema. Warm, well perfused. NEURO EXAM: O X 3, alert, cooperative. Moves 4 limbs to command. Conversant A/P Assessment and Plan Melena with GI bleed - Protonix IV twice a day - Gastroenterology consultation - Reverse coagulopathy - Series of H&H - Kcentra - Vitamin K - FFP's - For endoscopy, upper today. - Lower endoscopy a.m. Anemia - Due to blood loss - Transfuse to keep hemoglobin above 7 - H&H every 6 hours - Total 5 units rbcs transfused Diabetes/DKA - DKA protocol -> q4h SSI now 09/11 Seizure disorder - Continue Topamax when okay by mouth Hypotension - Hold antihypertensive medications due to borderline hypertension - Resume when indicated History of DVT - Hold Coumadin due to acute GI bleed - Further per GI DVT GI prophylaxis - Teds SCDs - No pharmacological DVT prophylaxis due to acute GI bleed - Protonix gtt Overall impression: Patient with severe GI bleed complicated by DKA and large osmotic diuresis. Coagulopathy resolved, DKA cleared. Source of bleed still murky. Emeka Hernandez MD Sep 11, 2017 11:25
[2017-09-11] MEDS: INSULIN ASPART SUPPLEMENTAL SCALE SQ SCH ×4 (11:26→23:30)
[2017-09-11] MEDS: DEXT 5%-NACL 0.45% 1000 ML INJ 1,000 ML IV SCH ×2 (11:26→14:42)
[2017-09-11] MEDS ORDERED: GLUCAGON 1 MG/ML VIAL OTHER PRN (11:30)
[2017-09-11] MEDS ORDERED: DEXTROSE 50% IN WATER 50 ML VIAL(D50) IV PUSH PRN (11:30)
[2017-09-11] MEDS ORDERED: PEG (High)/E-LYTE SOLN 4000 ML BTL PO ONE (16:00)
[2017-09-11] MEDS: traZODone HCL 50 MG TAB PO SCH (21:17)
[2017-09-11] MEDS: TOPIRAMATE 100 MG TAB PO SCH (21:21)
[2017-09-12] VITALS (13 sets, daily range): BP systolic 108–159; BP diastolic 58–77; PULSE 68–87; RESP 11–21; TEMP 98–99.1; O2SAT 96–100
[2017-09-12] MEDS: MORPHINE SULFATE 4 MG/ML INJ IV PUSH PRN ×5 (00:22→23:46)
[2017-09-12] MEDS: PANTOPRAZOLE SODIUM 40 MG VIAL IV PUSH SCH ×3 (00:22→23:45)
[2017-09-12] MEDS: INSULIN ASPART SUPPLEMENTAL SCALE SQ SCH ×6 (03:30→23:45)
[2017-09-12] MEDS: CHLORHEXIDINE GLUCONATE 2 % 1 PACK (2 CLOTHS) TOP SCH (04:00)
[2017-09-12 04:49] LABS: AUTOMATED NEUTROPHIL # 8.9 TH/MM3 (1.8-7.7); BASOPHIL % 0.3 % (0.0-2.0); EOSINOPHIL # 0.3 TH/MM3 (0-0.4); EOSINOPHIL % 2.6 % (0.0-4.0); HEMATOCRIT 26.5 % (35.0-46.0); HEMOGLOBIN 9.2 GM/DL (11.6-15.3); LYMPH % 13.6 % (9.0-44.0); LYMPHOCYTE # 1.6 TH/MM3 (1.0-4.8); MEAN CELL VOLUME 84.7 FL (80.0-100.0); MEAN CORPUSCULAR HEMOGLOBIN 29.3 PG (27.0-34.0); MEAN CORPUSCULAR HGB CONC 34.6 % (32.0-36.0); MEAN PLATELET VOLUME 7.9 FL (7.0-11.0); MONO % 7.7 % (0.0-8.0); MONOCYTE # 0.9 TH/MM3 (0-0.9); NEUT % 75.8 % (16.0-70.0); PLATELET COUNT 91 TH/MM3 (150-450); RED BLOOD COUNT 3.13 MIL/MM3 (4.00-5.30); WHITE BLOOD COUNT 11.7 TH/MM3 (4.0-11.0)
[2017-09-12 05:15] LABS: BICARBONATE 23.2 MEQ/L (21.0-32.0); CALCIUM 7.6 MG/DL (8.5-10.1); CREATININE 0.67 MG/DL (0.50-1.00)
[2017-09-12 05:32] LABS: BANDS 18 % (0-6); CORRECTED NUCLEATED RBC 2 /100 WBC (0-0); LYMPHOCYTES 10 % (9-44); METAMYELOCYTES 2 % (0-1); MONOCYTES 1 % (0-8); NEUTROPHIL # MANUAL DIFF 10.1 TH/MM3 (1.8-7.7); NUCLEATED RED BLOOD CELL 2 (0-0); POLYS (SEG NEUTROPHILS) 66 % (16-70)
[2017-09-12] MEDS: DOCUSATE SODIUM 50 MG/SENNA 8.6 MG TAB PO SCH ×2 (08:01→20:24)
[2017-09-12] MEDS: SODIUM CHLORIDE 0.9% FLUSH 10 ML FLUSH IV FLUSH SCH ×2 (08:01→20:24)
[2017-09-12] MEDS: PHYTONADIONE 10 MG/ML VIAL SQ SCH (08:02)
--- NOTE | 2017-09-12 08:52 | HHI.CCPN ---
Subjective Remarks/Hospital Course 56-year-old female presents from home by EMS transport for evaluation of generalized weakness diaphoresis and near syncope. Patient states she noted since yesterday black tarry frequent diarrhea. Patient denies any nausea or vomiting or abdominal pain. Patient denies recent antibiotic use. 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 She was also started on Coumadin at that time for DVT. In the emergency department her INR was found to be 10 and a hemoglobin 6.5. 09/10: INR corrected after Kcentra and FFP. Some residual lower GI blood - black , likely gastric source. 09/11: Total transfusion 5 unitrs rbcs. Stable hemodynamics now. DKA resolved, will convert to SSI q4h. Being prepped for colonoscopy. 09/12: Stable Hgb. Much improved. Resolving BUN elevation after hydration and blood passed through bowel. Colonoscopy today. Objective Vital Signs Date Time Temp Pulse Resp B/P (MAP) Pulse Ox O2 Delivery O2 Flow Rate FiO2 09/12/17 08:40 99 21 09/12/17 06:00 73 09/12/17 04:32 12 09/12/17 04:00 98.7 159/74 (102) 09/11/17 19:00 Room Air Intake and Output 09/12/17 09/12/17 09/13/17 08:00 16:00 00:00 Output Total 3550 ml Balance -3550 ml Result Diagram: 09/12/17 0430 09/12/17 0430 Objective Remarks GENERAL: Well-nourished, well-developed patient. Alert, calm. SKIN: Warm and dry. HEAD: Normocephalic. EYES: No scleral icterus. No injection or drainage. NECK: Supple, trachea midline. Airway widely patent. CARDIOVASCULAR: Regular rate and rhythm without murmurs, gallops, or rubs. No JVD. RESPIRATORY: Breath sounds equal bilaterally. No accessory muscle use. Clear. GASTROINTESTINAL: Abdomen soft, non-tender, nondistended. Active BS, no guarding. MUSCULOSKELETAL: No cyanosis, or edema. Warm, well perfused. NEURO EXAM: O X 3, alert, cooperative. Moves 4 limbs to command. Conversant. A/P Assessment and Plan Melena with GI bleed - Protonix IV twice a day - Gastroenterology consultation - Reverse coagulopathy - Series of H&H - Kcentra - Vitamin K - FFP's - For endoscopy, upper today. - Lower endoscopy a.m. Anemia - Due to blood loss - Transfuse to keep hemoglobin above 7 - H&H every 6 hours - Total 5 units rbcs transfused Diabetes/DKA - DKA protocol -> q4h SSI now 09/11 Seizure disorder - Continue Topamax when okay by mouth Hypotension - Hold antihypertensive medications due to borderline hypertension - Resume when indicated History of DVT - Hold Coumadin due to acute GI bleed - Further per GI DVT GI prophylaxis - Teds SCDs - No pharmacological DVT prophylaxis due to acute GI bleed - Protonix gtt Overall impression: Patient with severe GI bleed complicated by DKA and large osmotic diuresis. Coagulopathy resolved, DKA cleared. Source of bleed still murky but likely upper GI. Workup continues. Emeka Hernandez MD Sep 12, 2017 08:52
[2017-09-12] MEDS: DEXT 5%-NACL 0.45% 1000 ML INJ 1,000 ML IV SCH ×2 (10:44→23:44)
[2017-09-12] MEDS ORDERED: PROPOFOL 200 MG/20 ML AMP IV ONE (12:00)
[2017-09-12] MEDS ORDERED: PHENYLEPH/NS 1000 MCG/10 ML SYR IV ONE (12:00)
[2017-09-12] MEDS ORDERED: ePHEDrine/NS 25 MG/5 ML SYRINGE IV ONE (12:00)
--- NOTE | 2017-09-12 14:39 | PD.PROCEDR ---
GI Procedure PROCEDURE PERFORMED Colonoscopy INDICATION FOR PROCEDURE Anemia, GI bleed PROCEDURE: The procedure, risks and benefits were discussed with Ms. Grayson and informed consent was obtained. Anesthesia sedated her with Diprivan. She was placed in the left lateral decubitus position. Colonoscopy: The Pentax videoscope was introduced through the rectum and advanced to cecum where the ileocecal valve and appendiceal orifice were identified. Retroflexion was performed in the rectum. Colonic prep was good FINDINGS: Colonic withdrawal time greater than 6 minutes as the scope was slowly withdrawn colonic mucosa was carefully inspected this was noted to be unremarkable and within normal limits THE way through so as retroflexion and rectal examination ESTIMATED BLOOD LOSS: None SPECIMENS REMOVED: None COMPLICATIONS: None IMPRESSION: Normal colonoscopy PLAN: Continue with current supportive care Advance diet Monitor labs Flynn Sherman MD Sep 12, 2017 14:39
[2017-09-12] MEDS: TOPIRAMATE 100 MG TAB PO SCH (20:24)
[2017-09-12] MEDS: traZODone HCL 50 MG TAB PO SCH (20:24)
[2017-09-13] VITALS (8 sets, daily range): BP systolic 126–139; BP diastolic 60–65; PULSE 70–97; RESP 12–20; TEMP 98–99.1; O2SAT 97–99
[2017-09-13] MEDS: CHLORHEXIDINE GLUCONATE 2 % 1 PACK (2 CLOTHS) TOP SCH (04:00)
[2017-09-13] MEDS: INSULIN ASPART SUPPLEMENTAL SCALE SQ SCH ×4 (04:27→15:30)
[2017-09-13] MEDS: MORPHINE SULFATE 4 MG/ML INJ IV PUSH PRN (04:27)
[2017-09-13 04:40] LABS: HEMATOCRIT 24.6 % (35.0-46.0); HEMOGLOBIN 8.6 GM/DL (11.6-15.3); MEAN CELL VOLUME 85.9 FL (80.0-100.0); MEAN CORPUSCULAR HEMOGLOBIN 30.1 PG (27.0-34.0); MEAN PLATELET VOLUME 8.1 FL (7.0-11.0); PLATELET COUNT 89 TH/MM3 (150-450); RED BLOOD COUNT 2.86 MIL/MM3 (4.00-5.30); RED CELL DISTRIBUTION WIDTH 15.6 % (11.6-17.2); WHITE BLOOD COUNT 8.4 TH/MM3 (4.0-11.0)
--- NOTE | 2017-09-13 08:31 | HHI.CCPN ---
Subjective Remarks/Hospital Course 56-year-old female presents from home by EMS transport for evaluation of generalized weakness diaphoresis and near syncope. Patient states she noted since yesterday black tarry frequent diarrhea. Patient denies any nausea or vomiting or abdominal pain. Patient denies recent antibiotic use. 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 She was also started on Coumadin at that time for DVT. In the emergency department her INR was found to be 10 and a hemoglobin 6.5. 09/10: INR corrected after Kcentra and FFP. Some residual lower GI blood - black , likely gastric source. 09/11: Total transfusion 5 unitrs rbcs. Stable hemodynamics now. DKA resolved, will convert to SSI q4h. Being prepped for colonoscopy. 09/12: Stable Hgb. Much improved. Resolving BUN elevation after hydration and blood passed through bowel. Colonoscopy today. 09/13: Colonoscopy normal. No evidence of ongoing bleeding. Patient can go home , followup with Dr. Dumas for old leg blood clot and primary for CBC. Objective Vital Signs Date Time Temp Pulse Resp B/P (MAP) Pulse Ox O2 Delivery O2 Flow Rate FiO2 09/13/17 08:00 70 09/13/17 07:00 98 Room Air 09/13/17 04:32 12 09/13/17 04:00 99.1 139/65 (89) 09/12/17 20:16 21 Intake and Output 09/13/17 09/13/17 09/14/17 08:00 16:00 00:00 Intake Total 240 ml Output Total 2250 ml Balance -2009 ml Result Diagram: 09/13/17 0405 09/12/17 0430 Other Results Microbiology Date/Time Source Procedure Growth Status 09/11/17 19:43 Stool Stool Cryptosporidium Exam - Final NEGATIVE - NO CRYPTOSPORIDIUM ANTIGEN... Complete 09/11/17 19:43 Stool Stool Giardia Antigen (SHYANN) - Final NEGATIVE - NO GIARDIA ANTIGEN DETECTE... Complete Objective Remarks GENERAL: Well-nourished, well-developed patient. Alert, calm. SKIN: Warm and dry. HEAD: Normocephalic. NECK: Supple, trachea midline. Airway widely patent. CARDIOVASCULAR: Regular rate and rhythm without murmurs, gallops, or rubs. No JVD. RESPIRATORY: Breath sounds equal bilaterally. No accessory muscle use. Clear. GASTROINTESTINAL: Abdomen soft, non-tender, nondistended. Active BS, no guarding. MUSCULOSKELETAL: No cyanosis, or edema. Warm, well perfused. NEURO EXAM: O X 3, alert, cooperative. Moves 4 limbs to command. Conversant. A/P Assessment and Plan Melena with GI bleed - Protonix IV twice a day - Gastroenterology consultation - Reverse coagulopathy - Series of H&H - Kcentra - Vitamin K - FFP's - For endoscopy, upper today. - Lower endoscopy a.m. -> normal. Anemia - Due to blood loss - Transfuse to keep hemoglobin above 7 - H&H every 6 hours - Total 5 units rbcs transfused Diabetes/DKA - DKA protocol -> q4h SSI now 09/11 - She'll go home on diet control. Seizure disorder - Continue Topamax when okay by mouth Hypotension - Hold antihypertensive medications due to borderline hypotension - Resume when indicated History of DVT - Hold Coumadin due to acute GI bleed - Further per GI DVT GI prophylaxis - Teds SCDs - No pharmacological DVT prophylaxis due to acute GI bleed - Protonix gtt Overall impression: Stable hemodynamics, diabetes controlled. No bleeding X 72 hours. Stop coumadin and restart Xarelto for leg clot. Emeka Hernandez MD Sep 13, 2017 08:31
[2017-09-13] MEDS: SODIUM CHLORIDE 0.9% FLUSH 10 ML FLUSH IV FLUSH SCH (08:40)
[2017-09-13] MEDS: DOCUSATE SODIUM 50 MG/SENNA 8.6 MG TAB PO SCH (08:40)
[2017-09-13] MEDS ORDERED: PILL SPLITTER OTHER PRN (08:45)
[2017-09-13] MEDS ORDERED: amLODIPine BESYLATE 5 MG TAB PO SCH (09:00)
[2017-09-13] MEDS ORDERED: FUROSEMIDE 40 MG TAB PO SCH (09:00)
[2017-09-13] MEDS ORDERED: POTASSIUM CHLORIDE 10 MEQ CONTROLLED RELEASE TAB PO SCH (09:00)
[2017-09-13] MEDS: DEXT 5%-NACL 0.45% 1000 ML INJ 1,000 ML IV SCH (11:10)
--- NOTE | 2017-09-13 11:29 | HHI.GIFU ---
Subjective Remarks PT resting in bed in NAD. No bleeding. she is waiting to have a BM, took stool softeners last night. NO other complaints. (Kacy Edmonds) Objective Vitals I&O Vital Signs Date Time Temp Pulse Resp B/P (MAP) Pulse Ox O2 Delivery O2 Flow Rate FiO2 09/13/17 10:00 81 09/13/17 08:00 70 09/13/17 08:00 98.0 97 12 128/64 (85) 99 09/13/17 07:00 98 Room Air 09/13/17 06:00 73 09/13/17 04:32 12 09/13/17 04:00 99.1 78 20 139/65 (89) 98 09/13/17 04:00 91 09/13/17 02:00 88 09/13/17 00:00 75 09/13/17 00:00 98.5 75 13 126/60 (82) 97 09/12/17 22:00 87 09/12/17 20:16 100 21 09/12/17 20:00 99.1 84 13 129/77 (94) 99 09/12/17 20:00 84 09/12/17 19:00 99 Room Air 09/12/17 18:00 83 09/12/17 16:00 72 09/12/17 16:00 98.8 74 18 108/58 (75) 96 09/12/17 14:00 76 09/12/17 11:35 98 Room Air I/O 09/12/17 09/12/17 09/12/17 09/13/17 09/13/17 09/13/17 07:00 15:00 23:00 07:00 15:00 23:00 Intake Total 200 ml 240 ml Output Total 3550 ml 1550 ml 2250 ml Balance -3550 ml 200 ml -1550 ml -2010 ml Intake Oral 240 ml Other 200 ml Output Urine Total 1050 ml 1550 ml 2250 ml Stool Total 2500 ml # Bowel Movements 0 Laboratory Laboratory Tests Test 09/13/17 04:05 White Blood Count 8.4 Red Blood Count 2.86 Hemoglobin 8.6 Hematocrit 24.6 Mean Corpuscular Volume 85.9 Mean Corpuscular Hemoglobin 30.1 Mean Corpuscular Hemoglobin Concent 35.0 Red Cell Distribution Width 15.6 Platelet Count 89 Mean Platelet Volume 8.1 Date/Time Source Procedure Growth Status 09/11/17 19:43 Stool Stool Pending Received Imaging Last Impressions Chest X-Ray 09/10/17 0000 Signed Impressions: Service Date/Time: Sunday, September 10, 2017 01:20 - CONCLUSION: Right- sided central line in place. No pneumothorax. Prateek Acevedo MD Abdomen/Pelvis CT 09/10/17 0000 Signed Impressions: Service Date/Time: Sunday, September 10, 2017 16:44 - CONCLUSION: 1. Moderate size retrocardiac hiatal hernia. 2. Nonobstructive bowel gas pattern. 3. Small pleural effusions and small pericardial fluid noted. 4. Single 1 mm nonobstructing left renal calculus. Nicola Martinez MD Physical Exam HEENT: Normocephalic; atraumatic CHEST: Even/unlabored CARDIAC: RRR ABDOMEN: Obese, soft, nontender, bowel sounds active. EXTREMITIES: No clubbing, cyanosis, or edema. SKIN: Normal; no rash; no jaundice. 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 (Kacy Edmonds) Assessment and Plan Plan Assessment: - Melena approx 12 episodes, CT showed hiatal hernia. Denies history of GIB, NSAIDs, ETOH. S/P EGD 09/11/17- 625 cc of coffee ground aspirate removed no active bleeding. hiatal hernia. s/p COLONOSCOPY 09/12/16 was normal. stool studies neg for cryptosporidium, giardia - anemia - H/H 6.5/21.7 on admission, supratherapeutic INR. s/p 5 x PRBC, vit K, 2 x FFP Pt on Coumadin for history of DVT and valve replacement, no recent adjustments to medication. Mild decrease hgb today. INR improved - Random BGL over 400- pt reports history of prediabetes controlled with diet alone. Plan: - monitor labs - Transfuse as needed - Supportive care Pt has been seen and examined by myself and Dr. Sherman and this note is written on his behalf (Kacy Edmonds) Physician Comments Patient seen and examined Agree with above Continue with current supportive care Monitor labs (Flynn Sherman MD) Kacy Edmonds Sep 13, 2017 11:29 Flynn Sherman MD Sep 14, 2017 01:30
[2017-09-13] MEDS: PANTOPRAZOLE SODIUM 40 MG VIAL IV PUSH SCH (11:51)
--- NOTE | 2017-09-13 15:15 | HHI.DS ---
Discharge Summary Admission Date Sep 10, 2017 at 01:13 Discharge Date: Sep 13, 2017 Admitting Diagnosis Hemorrhagic Shock Upper GI bleed Coagulopathy from Coumadin. (1) Hemorrhagic shock ICD Code: R57.8 - Other shock Diagnosis: Principal Status: Acute (2) GI bleed ICD Code: K92.2 - Gastrointestinal hemorrhage, unspecified Diagnosis: Principal Status: Acute (3) DKA, type 2 ICD Code: E11.10 - Type 2 diabetes mellitus with ketoacidosis without coma Diagnosis: Principal Status: Acute (4) Warfarin-induced coagulopathy ICD Code: D68.9 - Coagulation defect, unspecified; T45.515A - Adverse effect of anticoagulants, initial encounter Diagnosis: Principal (5) Type 2 diabetes mellitus ICD Code: E11.9 - Type 2 diabetes mellitus without complications Diagnosis: Secondary Status: Chronic Procedures EGD Colonoscopy Brief History 56-year-old female presents from home by EMS transport for evaluation of generalized weakness diaphoresis and near syncope. Patient states she noted since yesterday black tarry frequent diarrhea. Patient denies any nausea or vomiting or abdominal pain. Patient denies recent antibiotic use. 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 She was also started on Coumadin at that time for DVT. In the emergency department her INR was found to be 10 and a hemoglobin 6.5. CBC/BMP: 09/13/17 0405 09/12/17 0430 Significant Findings Laboratory Tests Test 09/10/17 17:36 09/10/17 20:50 09/10/17 22:10 09/11/17 02:00 Hematocrit 31.8 % (35.0-46.0) 30.3 % (35.0-46.0) 28.7 % (35.0-46.0) Prothrombin Time 11.8 SEC (9.8-11.6) 12.4 SEC (9.8-11.6) Blood Urea Nitrogen 55 MG/DL (7-18) 40 MG/DL (7-18) Random Glucose 172 MG/DL (74-106) 191 MG/DL (74-106) Calcium Level 7.6 MG/DL (8.5-10.1) 7.3 MG/DL (8.5-10.1) Sodium Level 154 MEQ/L (136-145) 156 MEQ/L (136-145) Chloride Level 123 MEQ/L (98-107) 126 MEQ/L (98-107) Estimat Glomerular Filtration Rate 72 ML/MIN (>89) 71 ML/MIN (>89) Creatine Kinase MB 4.2 NG/ML (0.5-3.6) Troponin I 0.10 NG/ML (0.02-0.05) White Blood Count 16.5 TH/MM3 (4.0-11.0) Red Blood Count 3.65 MIL/MM3 (4.00-5.30) Hemoglobin 10.6 GM/DL (11.6-15.3) 10.2 GM/DL (11.6-15.3) Platelet Count 108 TH/MM3 (150-450) Total Protein 4.6 GM/DL (6.4-8.2) Phosphorus Level 2.1 MG/DL (2.5-4.9) Test 09/11/17 08:31 09/12/17 04:30 09/13/17 04:05 Hemoglobin 9.9 GM/DL (11.6-15.3) 9.2 GM/DL (11.6-15.3) 8.6 GM/DL (11.6-15.3) Hematocrit 27.0 % (35.0-46.0) 26.5 % (35.0-46.0) 24.6 % (35.0-46.0) White Blood Count 11.7 TH/MM3 (4.0-11.0) Red Blood Count 3.13 MIL/MM3 (4.00-5.30) 2.86 MIL/MM3 (4.00-5.30) Platelet Count 91 TH/MM3 (150-450) 89 TH/MM3 (150-450) Neutrophils (%) (Auto) 75.8 % (16.0-70.0) Neutrophils # (Auto) 8.9 TH/MM3 (1.8-7.7) Band Neutrophils % 18 % (0-6) Neutrophils # (Manual) 10.1 TH/MM3 (1.8-7.7) Metamyelocytes 2 % (0-1) Nucleated Red Blood Cells 2 /100 WBC (0-0) Platelet Estimate LOW (NORMAL) Random Glucose 168 MG/DL (74-106) Calcium Level 7.6 MG/DL (8.5-10.1) Sodium Level 149 MEQ/L (136-145) Chloride Level 118 MEQ/L (98-107) PE at Discharge Lungs clear. Breathing comfortably. Transfer Summary Massive 5 units U GI bleed from gastric ulcer with INR 10 from coumadin (taken for left leg clot). Will switch to Xarelto. Hospital Course 56-year-old female presents from home by EMS transport for evaluation of generalized weakness diaphoresis and near syncope. Patient states she noted since yesterday black tarry frequent diarrhea. Patient denies any nausea or vomiting or abdominal pain. Patient denies recent antibiotic use. 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 She was also started on Coumadin at that time for DVT. In the emergency department her INR was found to be 10 and a hemoglobin 6.5. 09/10: INR corrected after Kcentra and FFP. Some residual lower GI blood - black , likely gastric source. 09/11: Total transfusion 5 unitrs rbcs. Stable hemodynamics now. DKA resolved, will convert to SSI q4h. Being prepped for colonoscopy. 09/12: Stable Hgb. Much improved. Resolving BUN elevation after hydration and blood passed through bowel. Colonoscopy today. 09/13: Colonoscopy normal. No evidence of ongoing bleeding. Patient can go home , followup with Dr. Dumas for old leg blood clot and primary for CBC. Pt Condition on Discharge: Good Discharge Disposition: Discharge Home Discharge Instructions DIET: Follow Instructions for: Heart Healthy Diet Additional Diet Instructions: Avoid foods that cause heartburn Activities you can perform: Full Weight Bearing Emeka Hernandez MD Sep 13, 2017 15:15
== END 2017-09-13 15:42 | disposition home or self-care (01) | DRG 326 ==
LOC: NEPC 22:41 → NEDA 09-10 01:13 → N03B 09-10 04:02
PROVIDERS: ADMIT Internal Medicine Critical Care Medicine; ATTEND Internal Medicine Critical Care Medicine
PROC: 30233K1 Transfusion of Nonautologous Frozen Plasma into Peripheral Vein, Percutaneous Approach (ICD-10-PCS; 2017-09-10)
PROC: 30233N1 Transfusion of Nonautologous Red Blood Cells into Peripheral Vein, Percutaneous Approach (ICD-10-PCS; 2017-09-10)
PROC: 02HV33Z Insertion of Infusion Device into Superior Vena Cava, Percutaneous Approach (ICD-10-PCS; 2017-09-10)
PROC: B543ZZA Ultrasonography of Right Jugular Veins, Guidance (ICD-10-PCS; 2017-09-10)
PROC: 0D968ZZ Drainage of Stomach, Via Natural or Artificial Opening Endoscopic (ICD-10-PCS; principal; 2017-09-10 15:42)
PROC: 0DJD8ZZ Inspection of Lower Intestinal Tract, Via Natural or Artificial Opening Endoscopic (ICD-10-PCS; 2017-09-12)
DX: K25.4 Chronic or unspecified gastric ulcer with hemorrhage (principal); R57.8 Other shock; E11.10 Type 2 diabetes mellitus with ketoacidosis without coma; J90 Pleural effusion, not elsewhere classified; D68.32 Hemorrhagic disorder due to extrinsic circulating anticoagulants; T45.515A Adverse effect of anticoagulants, initial encounter; E78.5 Hyperlipidemia, unspecified; I10 Essential (primary) hypertension; N28.9 Disorder of kidney and ureter, unspecified; R00.0 Tachycardia, unspecified; G40.909 Epilepsy, unspecified, not intractable, without status epilepticus; D50.0 Iron deficiency anemia secondary to blood loss (chronic); K44.9 Diaphragmatic hernia without obstruction or gangrene; E86.1 Hypovolemia; N20.0 Calculus of kidney; F32.9 Major depressive disorder, single episode, unspecified; Z79.01 Long term (current) use of anticoagulants; Z85.3 Personal history of malignant neoplasm of breast; Z85.41 Personal history of malignant neoplasm of cervix uteri; Z86.718 Personal history of other venous thrombosis and embolism; Z86.73 Personal history of transient ischemic attack (TIA), and cerebral infarction without residual deficits; Z88.2 Allergy status to sulfonamides; Z92.21 Personal history of antineoplastic chemotherapy; Z92.3 Personal history of irradiation; Z95.3 Presence of xenogenic heart valve
CPT/HCPCS: 36430; 51702; 71045; 74176; 80048; 80053; 82010; 82140; 82550; 82552; 82800; 82948; 83690; 83735; 83930; 84100; 84155; 84484; 85007; 85014; 85018; 85027; 85384; 85610; 85730; 86850; 86900; 86901; 86920; 86927; 87328; 87329; 87506; 87641; 93005; 96365; C9113; C9132; J0610; J1815; J1817; J2270; J2370; J2405; J3010; J3430; J3475; J7030; J7042; J7050; P9016; P9017